=== PATIENT | male | born 2000 | race Caucasian/White ===

== ENCOUNTER 2022-10-18 15:33 | Inpatient (IN) | payer OTHER, SELFPAY ==
--- NOTE | ~2022-10-18 | XR_ITS ---
EXAMINATION: XR HAND, RIGHT CLINICAL INFORMATION: Right hand fracture COMPARISON: None available. TECHNIQUE: PA, lateral, and oblique views of the right hand. FINDINGS: The bones and soft tissues are normal. No fracture. Alignment is anatomic. Joint spaces are maintained. No erosions or soft tissue calcifications. XR/XR hand RT min 3V IMPRESSION: Normal right hand.
[2022-10-18 16:45] VITALS: BP 135/94; PULSE 93; TEMP 36.7; O2SAT 98
[2022-10-18] MEDS: hydrOXYzine HCL 25 MG TABLET PO (18:18)
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
--- NOTE | 2022-10-18 18:45 | PC.NURSE ---
Medication req done with RN at sending facility and MD. Unable to reach/identify pharmacy in [place]. MD placed current medications and scheduled labs.
[2022-10-18] MEDS: traZODone HCL 100 MG TABLET PO (20:27)
[2022-10-18] MEDS: Lithium Carbonate ER 450 MG TABLET.ER PO (20:27)
[2022-10-18] MEDS: risperiDONE 2 MG TABLET 4 MG PO (20:27)
[2022-10-18] MEDS: clonazePAM 0.5 MG TABLET PO (20:27)
[2022-10-18] MEDS: Nicotine Polacrilex 2 MG GUM 4 MG BUCCAL (20:31)
[2022-10-19] MEDS: clonazePAM 0.5 MG TABLET PO ×3 (00:08→18:23)
[2022-10-19] MEDS: hydrOXYzine HCL 25 MG TABLET PO ×4 (00:10→23:19)
[2022-10-19] MEDS: Benztropine Mesylate 1 MG TABLET PO ×2 (05:12→23:19)
[2022-10-19] MEDS: Nicotine Polacrilex 2 MG GUM 4 MG BUCCAL ×5 (05:12→20:19)
[2022-10-19] MEDS: Acetaminophen 325 MG TABLET 650 MG PO ×2 (05:12→15:06)
[2022-10-19 05:13] VITALS: BMI 26.6
[2022-10-19 08:00] VITALS: BP 139/86; PULSE 84; TEMP 36.6; O2SAT 98
[2022-10-19] MEDS: Lithium Carbonate ER 450 MG TABLET.ER PO ×2 (08:15→20:19)
[2022-10-19] MEDS: risperiDONE 2 MG TABLET PO (08:15)
[2022-10-19 09:27] LABS: Estimated Average Glucose 88 mg/dL; Hemoglobin A1c % 4.7 %
[2022-10-19 09:50] LABS: Lithium 0.47 mmol/L (0.60-1.20)
[2022-10-19 10:06] LABS: Alanine Aminotransferase 35 U/L (0-40); Albumin Level 4.9 g/dL (3.5-5.0); Alkaline Phosphatase 84 U/L (39-117); Anion Gap 11 (12-20); Aspartate Amino Transferase 19 U/L (5-37); Blood Urea Nitrogen 10 mg/dL (9-16); Calcium 10.4 mg/dL (8.4-10.2); Carbon Dioxide 30 mmol/L (22-29); Chloride 104 mmol/L (96-108); Cholesterol 124 mg/dL; Creatinine Clr Calc Pharmacy 108.1; Estimated Glomerular Filt Rate > 60; Glucose Fasting 113 mg/dL (60-99); HDL Cholesterol 47 mg/dL; LDL Cholesterol Calculated 57 mg/dl; Sodium 140 mmol/L (135-145); Total Protein 7.9 g/dL (6.5-8.0); Triglycerides 101 mg/dL
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
[2022-10-19 10:38] LABS: Folate 14.6 ng/mL (> or = 4.0); Free T4 (Free Thyroxine) 1.07 ng/dL (0.71-1.85); Vitamin B12 646 pg/mL (200-900)
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
[2022-10-19] MEDS: traZODone HCL 100 MG TABLET PO (20:18)
[2022-10-19] MEDS: risperiDONE 2 MG TABLET 4 MG PO (20:18)
[2022-10-19] MEDS: cloNIDine HCL 0.1 MG TABLET PO (20:18)
[2022-10-19 20:30] VITALS: BP 150/85; PULSE 96; RESP 16; O2SAT 97
[2022-10-19] MEDS: OLANZapine 5 MG TABLET PO (23:19)
[2022-10-20] MEDS: Acetaminophen 325 MG TABLET 650 MG PO (03:34)
[2022-10-20] MEDS: Nicotine Polacrilex 2 MG GUM 4 MG BUCCAL ×4 (03:34→17:33)
[2022-10-20] MEDS: OLANZapine 5 MG TABLET PO ×2 (03:53→11:56)
[2022-10-20 07:00] VITALS: BMI 25.6
[2022-10-20 07:43] VITALS: BP 150/80; PULSE 79; TEMP 36.7; O2SAT 98
[2022-10-20] MEDS: Lithium Carbonate ER 450 MG TABLET.ER PO (07:51)
[2022-10-20] MEDS: cloNIDine HCL 0.1 MG TABLET PO ×2 (07:51→22:30)
[2022-10-20] MEDS: risperiDONE 2 MG TABLET PO (07:51)
[2022-10-20] MEDS: Nicotine 21 MG PATCH.TD24 TRANSDERMA (07:52)
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
[2022-10-20] MEDS: hydrOXYzine HCL 25 MG TABLET PO (15:27)
[2022-10-20] MEDS: OLANZapine 10 MG TABLET PO (17:33)
[2022-10-20 20:10] VITALS: BP 148/72; PULSE 80; RESP 16; TEMP 36.9; O2SAT 98
[2022-10-20] MEDS: Lithium Carbonate 300 MG CAPSULE 600 MG PO (22:29)
[2022-10-20] MEDS: traZODone HCL 100 MG TABLET PO (22:29)
[2022-10-20] MEDS: risperiDONE 2 MG TABLET 4 MG PO (22:29)
[2022-10-20] MEDS: LORazepam 1 MG TABLET 2 MG PO (22:30)
[2022-10-21] MEDS: LORazepam 1 MG TABLET PO ×2 (02:04→13:21)
[2022-10-21] MEDS: Nicotine Polacrilex 2 MG GUM 4 MG BUCCAL ×5 (02:06→17:13)
[2022-10-21] MEDS: hydrOXYzine HCL 25 MG TABLET PO ×2 (04:31→14:17)
[2022-10-21] MEDS: OLANZapine 10 MG TABLET PO ×2 (04:31→17:15)
[2022-10-21 07:52] VITALS: BP 141/77; PULSE 88; TEMP 36.6; O2SAT 99
[2022-10-21] MEDS: Nicotine 21 MG PATCH.TD24 TRANSDERMA (08:02)
[2022-10-21] MEDS: Milk of Magnesia 30 ML ORAL.SUSP PO (08:03)
[2022-10-21] MEDS: Lithium Carbonate 300 MG CAPSULE PO (08:04)
[2022-10-21] MEDS: risperiDONE 2 MG TABLET PO (08:04)
[2022-10-21] MEDS: cloNIDine HCL 0.1 MG TABLET PO ×2 (08:05→20:42)
[2022-10-21] MEDS: Acetaminophen 325 MG TABLET 650 MG PO (14:17)
--- NOTE | 2022-10-21 16:22 | HO.PSYCHPN ---
Subjective Subjective Date of Service: 10/21/22 Reason For Visit: Psychosis Interim History: pleasant, cooperative. difficulty sleeping. agrees to increase trazodone to 150. per staff, anxious, pleasant. grandiose. poor sleep, up at 0200. singing and dancing yesterday. med-compliant. + grps. + ADLs. Mental Status Exam Mental Status Exam Narrative: Appearance: casually groomed, intense eye contact, in NAD behavior: cooperative Psychomotor: no over agitation or retardation noted Speech: clear, normal rate/rhythm, volume, spontaneous TP: linear in limited interaction TC: no delusions or paranoia expressed Mood: not assessed Affect: full range, flexible, normo-intense SI: none expressed HI: none expressed AVH: none expressed Insight/judgment: fair x 2. Memory/cog: alert, oriented x 4. Diagnostics Vital Signs (24Hr): Vital Signs - 24 hr 10/20/22 20:10 10/21/22 07:52 Temperature 98.4 F 97.9 F Pulse Rate 80 88 Respiratory Rate 16 Blood Pressure 148/72 H 141/77 H Pulse Oximetry 98 99 Oxygen Delivery Method Room Air Room Air BMI result Body Mass Index 25.6 Labs 10/19/22 08:37 Imaging Radiology Impressions: ITS Impressions Hand X-Ray 10/20/22 16:15 IMPRESSION: Normal right hand. Medications Medications Current Medications Acetaminophen (Acetaminophen 325 Mg Tablet) 650 mg PO Q6H PRN PRN Reason: Headache/Pain Mild Scale (1-3) Last Admin: 10/21/22 14:17 Dose: 650 mg Al Hydroxide/Mg Hydroxide (Magnesium Hydrox/Alum Hydrox 30 Ml Oral.Susp) 30 ml PO Q6H PRN PRN Reason: Heartburn/Nausea Benztropine Mesylate (Benztropine Mesylate 1 Mg Tablet) 1 mg PO TID PRN PRN Reason: Extrapyramidal Effects Last Admin: 10/19/22 23:19 Dose: 1 mg Clonidine HCl (Clonidine Hcl 0.1 Mg Tablet) 0.1 mg PO BID [facility]; Protocol Last Admin: 10/21/22 08:05 Dose: 0.1 mg Hydroxyzine HCl (Hydroxyzine Hcl 25 Mg Tablet) 25 mg PO Q6H PRN PRN Reason: Anxiety Last Admin: 10/21/22 14:17 Dose: 25 mg [place] Carbonate ([place] Carbonate 300 Mg Capsule) 300 mg PO DAILY [facility] Last Admin: 10/21/22 08:04 Dose: 300 mg [place] Carbonate ([place] Carbonate 300 Mg Capsule) 600 mg PO BEDTIME [facility] Last Admin: 10/20/22 22:29 Dose: 600 mg Lorazepam (Lorazepam 1 Mg Tablet) 2 mg PO BEDTIME [facility] Last Admin: 10/20/22 22:30 Dose: 2 mg Lorazepam (Lorazepam 1 Mg Tablet) 1 mg PO Q6H PRN PRN Reason: anxiety/agitation Last Admin: 10/21/22 13:21 Dose: 1 mg Magnesium Hydroxide (Milk Of Magnesia 30 Ml Oral.Susp) 30 ml PO DAILY PRN PRN Reason: Constipation Last Admin: 10/21/22 08:03 Dose: 30 ml Nicotine (Nicotine 21 Mg Patch.Td24) 21 mg TRANSDERMA DAILY [facility] Last Admin: 10/21/22 08:02 Dose: 21 mg Nicotine Polacrilex (Nicotine Polacrilex 2 Mg Gum) 4 mg BUCCAL Q2H PRN PRN Reason: Nicotine Cravings Last Admin: 10/21/22 14:19 Dose: 4 mg Olanzapine (Olanzapine 10 Mg Tablet) 10 mg PO Q4H PRN PRN Reason: Agitation Last Admin: 10/21/22 04:31 Dose: 10 mg Risperidone (Risperidone 2 Mg Tablet) 2 mg PO DAILY [facility] Last Admin: 10/21/22 08:04 Dose: 2 mg Risperidone (Risperidone 2 Mg Tablet) 4 mg PO BEDTIME [facility] Last Admin: 10/20/22 22:29 Dose: 4 mg Trazodone HCl (Trazodone Hcl 50 Mg Tablet) 150 mg PO BEDTIME MRX1 [facility] Allergies Allergies Allergy/AdvReac Type Severity Reaction Status Date / Time No Known Allergies Allergy Verified 10/18/22 16:32 Assessment & Plan Assessment & Plan (1) Schizoaffective disorder, bipolar type: Status: Acute Code(s): F25.0 - Schizoaffective disorder, bipolar type Plan Mr. Desouza is a 22 year-old male with hx of Bipolar versus schizoaffective disorder bipolar type (note severity of delusional and psychotic symptoms not exclusively present with mood component). Pt shows some insight into need for treatment. He currently denies hearing voices. He denies paranoid delusions, but does report paranoia towards previous hospital where he reports his brain was bleeding daily. We discussed risks, benefits and alternative treatment options. He agrees to continue risperidone and lithium. He reports using thorazine for agitation (secondary to psychosis/paranoia) and anxiety with good effect. He also presents with bilateral action tremor, which seems to be related to lithium. No cogwheel or EPS, less likely related to antipsychotic. Recommend to avoid dehydration, limit caffeinated beverages and also discuss adding clonidine or propanolol for tremor. PLAN 1. Admit to M3, CV, 15 minutes checks for safety. 2. Continue risperidone and lithium. Thorazine prn for agitation. 3. start clonidine 0.1mg po bID for tremor and anxiety. If ineffective can switch to propanolol 4. Obtain collateral information 5. Aftercare planning 10/20 continue current medications. d/c clonazepam per pt request and added ativan qhs for sleep. 10/21: increase trazodone to 150 mg QHS for sleep. otherwise continue current mgmt. resolving marco. Reason for continued inpatient stay Substantial Risk for: inability to function and rapid decompensation Time Spent With Patient Time: Total time managing care of this patient today __25__ minutes.
[2022-10-21 20:20] VITALS: BP 159/84; PULSE 95; RESP 18; TEMP 36.7; O2SAT 98
[2022-10-21] MEDS: LORazepam 1 MG TABLET 2 MG PO (20:41)
[2022-10-21] MEDS: traZODone HCL 50 MG TABLET 150 MG PO (20:41)
[2022-10-21] MEDS: risperiDONE 2 MG TABLET 4 MG PO (20:42)
[2022-10-21] MEDS: Lithium Carbonate 300 MG CAPSULE 600 MG PO (20:42)
[2022-10-22] MEDS: hydrOXYzine HCL 25 MG TABLET PO ×4 (00:03→23:18)
[2022-10-22] MEDS: traZODone HCL 50 MG TABLET 150 MG PO ×2 (00:03→20:39)
[2022-10-22] MEDS: OLANZapine 10 MG TABLET PO ×4 (04:08→23:18)
[2022-10-22] MEDS: Nicotine Polacrilex 2 MG GUM 4 MG BUCCAL ×4 (04:08→23:18)
[2022-10-22] MEDS: LORazepam 1 MG TABLET PO ×3 (04:08→17:13)
--- NOTE | 2022-10-22 05:34 | PC.NURSE ---
Sin is noted to be hyper-verbal but pleasant throughout the evening, A&O X's 3, with C/O anxiety 02/21 but denies all other psych symptoms. he requested his HS medications early then c/o insomnia and anxiety at 0003. he received second trazodone dose and atarax both with moderate effect. no behavioral concerns
[2022-10-22 06:00] VITALS: BP 136/82; PULSE 83; RESP 16; TEMP 36.6; O2SAT 98
[2022-10-22] MEDS: Acetaminophen 325 MG TABLET 650 MG PO ×2 (06:57→20:40)
[2022-10-22] MEDS: Nicotine 21 MG PATCH.TD24 TRANSDERMA (08:07)
[2022-10-22] MEDS: cloNIDine HCL 0.1 MG TABLET PO ×2 (08:08→20:40)
[2022-10-22] MEDS: risperiDONE 2 MG TABLET PO (08:08)
[2022-10-22] MEDS: Lithium Carbonate 300 MG CAPSULE PO (08:08)
[2022-10-22 08:46] LABS: Lithium 0.41 mmol/L (0.60-1.20)
--- NOTE | 2022-10-22 10:24 | HO.PSYCHPN ---
Subjective Subjective Date of Service: 10/22/22 Reason For Visit: Psychosis Subjective Notes: Conditional Voluntary Interim History: Pt appears less grandiose in that he reports ideas of going [place]. He reports tolerating the medication well. He reports he feels good. He denies SI/HI. He also denies VH/AH. No behavioral concerns. Pt slept 5 hrs. Review of Systems Review of Systems Pt reports pain on right hand fingers. No chest pain. No SOB. No loose stools or constipation. No abdominal pain No changes in vision Pt reports tremors bilat hands. Mental Status Exam Mental Status Exam Narrative: Appearance: casually groomed, intense eye contact, in NAD behavior: cooperative Psychomotor: no over agitation or retardation noted Speech: clear, normal rate/rhythm, volume, spontaneous TP: linear in limited interaction TC: no delusions or paranoia expressed Mood: not assessed Affect: full range, flexible, normo-intense SI: none expressed HI: none expressed AVH: none expressed Insight/judgment: fair x 2. Memory/cog: alert, oriented x 4. Diagnostics Vital Signs (24Hr): Vital Signs - 24 hr 10/21/22 20:20 10/22/22 06:00 Temperature 98.0 F 97.8 F Pulse Rate 95 83 Respiratory Rate 18 16 Blood Pressure 159/84 H 136/82 Pulse Oximetry 98 98 Oxygen Delivery Method Room Air Room Air BMI result Body Mass Index 25.6 Labs 10/19/22 08:37 Labs: Laboratory Results - last 48 hr 10/22/22 08:28 [place] 0.41 L Imaging Radiology Impressions: ITS Impressions Hand X-Ray 10/20/22 16:15 IMPRESSION: Normal right hand. Medications Medications Current Medications Acetaminophen (Acetaminophen 325 Mg Tablet) 650 mg PO Q6H PRN PRN Reason: Headache/Pain Mild Scale (1-3) Last Admin: 10/22/22 06:57 Dose: 650 mg Al Hydroxide/Mg Hydroxide (Magnesium Hydrox/Alum Hydrox 30 Ml Oral.Susp) 30 ml PO Q6H PRN PRN Reason: Heartburn/Nausea Benztropine Mesylate (Benztropine Mesylate 1 Mg Tablet) 1 mg PO TID PRN PRN Reason: Extrapyramidal Effects Last Admin: 10/19/22 23:19 Dose: 1 mg Clonidine HCl (Clonidine Hcl 0.1 Mg Tablet) 0.1 mg PO BID [facility]; Protocol Last Admin: 10/22/22 08:08 Dose: 0.1 mg Hydroxyzine HCl (Hydroxyzine Hcl 25 Mg Tablet) 25 mg PO Q6H PRN PRN Reason: Anxiety Last Admin: 10/22/22 06:58 Dose: 25 mg [place] Carbonate ([place] Carbonate 300 Mg Capsule) 300 mg PO DAILY [facility] Last Admin: 10/22/22 08:08 Dose: 300 mg [place] Carbonate ([place] Carbonate 300 Mg Capsule) 600 mg PO BID [facility] Lorazepam (Lorazepam 1 Mg Tablet) 2 mg PO BEDTIME [facility] Last Admin: 10/21/22 20:41 Dose: 2 mg Lorazepam (Lorazepam 1 Mg Tablet) 1 mg PO Q6H PRN PRN Reason: anxiety/agitation Last Admin: 10/22/22 10:08 Dose: 1 mg Magnesium Hydroxide (Milk Of Magnesia 30 Ml Oral.Susp) 30 ml PO DAILY PRN PRN Reason: Constipation Last Admin: 10/21/22 08:03 Dose: 30 ml Nicotine (Nicotine 21 Mg Patch.Td24) 21 mg TRANSDERMA DAILY [facility] Last Admin: 10/22/22 08:07 Dose: 21 mg Nicotine Polacrilex (Nicotine Polacrilex 2 Mg Gum) 4 mg BUCCAL Q2H PRN PRN Reason: Nicotine Cravings Last Admin: 10/22/22 04:08 Dose: 4 mg Olanzapine (Olanzapine 10 Mg Tablet) 10 mg PO Q4H PRN PRN Reason: Agitation Last Admin: 10/22/22 04:08 Dose: 10 mg Risperidone (Risperidone 2 Mg Tablet) 2 mg PO DAILY [facility] Last Admin: 10/22/22 08:08 Dose: 2 mg Risperidone (Risperidone 2 Mg Tablet) 4 mg PO BEDTIME [facility] Last Admin: 10/21/22 20:42 Dose: 4 mg Trazodone HCl (Trazodone Hcl 50 Mg Tablet) 150 mg PO BEDTIME [facility] Allergies Allergies Allergy/AdvReac Type Severity Reaction Status Date / Time No Known Allergies Allergy Verified 10/18/22 16:32 Assessment & Plan Assessment & Plan (1) Schizoaffective disorder, bipolar type: Status: Acute Code(s): F25.0 - Schizoaffective disorder, bipolar type Plan Mr. Desouza is a 22 year-old male with hx of Bipolar versus schizoaffective disorder bipolar type (note severity of delusional and psychotic symptoms not exclusively present with mood component). Pt shows some insight into need for treatment. He currently denies hearing voices. He denies paranoid delusions, but does report paranoia towards previous hospital where he reports his brain was bleeding daily. We discussed risks, benefits and alternative treatment options. He agrees to continue risperidone and lithium. He reports using thorazine for agitation (secondary to psychosis/paranoia) and anxiety with good effect. He also presents with bilateral action tremor, which seems to be related to lithium. No cogwheel or EPS, less likely related to antipsychotic. Recommend to avoid dehydration, limit caffeinated beverages and also discuss adding clonidine or propanolol for tremor. PLAN 1. Admit to M3, CV, 15 minutes checks for safety. 2. Continue risperidone and lithium. Thorazine prn for agitation. 3. start clonidine 0.1mg po bID for tremor and anxiety. If ineffective can switch to propanolol 4. Obtain collateral information 5. Aftercare planning 10/20 continue current medications. d/c clonazepam per pt request and added ativan qhs for sleep. 10/21: increase trazodone to 150 mg QHS for sleep. otherwise continue current mgmt. resolving marco. 10/22 lithium level low, lithium dose increase to 600mg po BID. Reason for continued inpatient stay Substantial Risk for: inability to function Time Spent With Patient Time: Total time managing care of this patient today ____ minutes.
[2022-10-22] MEDS: Lithium Carbonate 300 MG TABLET PO (11:13)
[2022-10-22] MEDS: Milk of Magnesia 30 ML ORAL.SUSP PO (14:55)
[2022-10-22 20:35] VITALS: BP 131/78; PULSE 96; RESP 18; TEMP 36.4; O2SAT 96
[2022-10-22] MEDS: Lithium Carbonate 300 MG CAPSULE 600 MG PO (20:40)
[2022-10-22] MEDS: LORazepam 1 MG TABLET 2 MG PO (20:40)
[2022-10-22] MEDS: risperiDONE 2 MG TABLET 4 MG PO (20:40)
[2022-10-23] MEDS: OLANZapine 10 MG TABLET PO ×3 (03:20→14:57)
[2022-10-23] MEDS: Nicotine Polacrilex 2 MG GUM 4 MG BUCCAL ×5 (03:20→19:25)
[2022-10-23 06:00] VITALS: BP 140/84; PULSE 99; RESP 16; TEMP 36.8; O2SAT 98
[2022-10-23] MEDS: Nicotine 21 MG PATCH.TD24 TRANSDERMA (08:02)
[2022-10-23] MEDS: Lithium Carbonate 300 MG CAPSULE PO (08:02)
[2022-10-23] MEDS: cloNIDine HCL 0.1 MG TABLET PO ×2 (08:03→20:16)
[2022-10-23] MEDS: Lithium Carbonate 300 MG CAPSULE 600 MG PO ×2 (08:03→20:16)
[2022-10-23] MEDS: risperiDONE 2 MG TABLET PO (08:03)
[2022-10-23] MEDS: Acetaminophen 325 MG TABLET 650 MG PO ×2 (09:41→16:01)
[2022-10-23] MEDS: LORazepam 1 MG TABLET PO ×2 (10:30→16:02)
[2022-10-23] MEDS: hydrOXYzine HCL 25 MG TABLET PO ×2 (11:43→19:24)
[2022-10-23] MEDS: Milk of Magnesia 30 ML ORAL.SUSP PO (14:07)
[2022-10-23] MEDS: Benztropine Mesylate 1 MG TABLET PO (17:36)
--- NOTE | 2022-10-23 18:27 | P.PNPSI_ITS ---
Subjective Subjective Date of Service: 10/23/22 Reason For Visit: Psychosis Subjective Notes: Conditional Voluntary Interim History: Pt reports medications are helping a lot. He reports feeling calmer. He did ask for prn olanzapine yesterday mroe than usual. He reports he feels good. Less grandiose delusions. He denies SI/HI. He also denies VH/AH. No behavioral concerns. Pt slept 5 hrs. Review of Systems Review of Systems Pt reports pain on right hand fingers. No chest pain. No SOB. No loose stools or constipation. No abdominal pain No changes in vision Pt reports tremors bilat hands. Mental Status Exam Mental Status Exam Narrative: Appearance: casually groomed, intense eye contact, in NAD behavior: cooperative Psychomotor: no over agitation or retardation noted Speech: clear, normal rate/rhythm, volume, spontaneous TP: linear in limited interaction TC: no delusions or paranoia expressed Mood: not assessed Affect: full range, flexible, normo-intense SI: none expressed HI: none expressed AVH: none expressed Insight/judgment: fair x 2. Memory/cog: alert, oriented x 4. Diagnostics Vital Signs (24Hr): Vital Signs - 24 hr 10/22/22 20:35 10/23/22 06:00 Temperature 97.6 F 98.2 F Pulse Rate 96 99 Respiratory Rate 18 16 Blood Pressure 131/78 140/84 H Pulse Oximetry 96 98 Oxygen Delivery Method Room Air Room Air BMI result Body Mass Index 25.6 Labs 10/19/22 08:37 Labs: Laboratory Results - last 48 hr 10/22/22 08:28 [place] 0.41 L Imaging Radiology Impressions: ITS Impressions Hand X-Ray 10/20/22 16:15 IMPRESSION: Normal right hand. Medications Medications Current Medications Acetaminophen (Acetaminophen 325 Mg Tablet) 650 mg PO Q6H PRN PRN Reason: Headache/Pain Mild Scale (1-3) Last Admin: 10/23/22 16:01 Dose: 650 mg Al Hydroxide/Mg Hydroxide (Magnesium Hydrox/Alum Hydrox 30 Ml Oral.Susp) 30 ml PO Q6H PRN PRN Reason: Heartburn/Nausea Benztropine Mesylate (Benztropine Mesylate 1 Mg Tablet) 1 mg PO TID PRN PRN Reason: Extrapyramidal Effects Last Admin: 10/23/22 17:36 Dose: 1 mg Clonidine HCl (Clonidine Hcl 0.1 Mg Tablet) 0.1 mg PO BID [facility]; Protocol Last Admin: 10/23/22 08:03 Dose: 0.1 mg Hydroxyzine HCl (Hydroxyzine Hcl 25 Mg Tablet) 25 mg PO Q6H PRN PRN Reason: Anxiety Last Admin: 10/23/22 11:43 Dose: 25 mg [place] Carbonate ([place] Carbonate 300 Mg Capsule) 300 mg PO DAILY [facility] Last Admin: 10/23/22 08:02 Dose: 300 mg [place] Carbonate ([place] Carbonate 300 Mg Capsule) 600 mg PO BID [facility] Last Admin: 10/23/22 08:03 Dose: 600 mg Lorazepam (Lorazepam 1 Mg Tablet) 2 mg PO BEDTIME [facility] Last Admin: 10/22/22 20:40 Dose: 2 mg Lorazepam (Lorazepam 1 Mg Tablet) 1 mg PO Q6H PRN PRN Reason: anxiety/agitation Last Admin: 10/23/22 16:02 Dose: 1 mg Magnesium Hydroxide (Milk Of Magnesia 30 Ml Oral.Susp) 30 ml PO DAILY PRN PRN Reason: Constipation Last Admin: 10/23/22 14:07 Dose: 30 ml Nicotine (Nicotine 21 Mg Patch.Td24) 21 mg TRANSDERMA DAILY [facility] Last Admin: 10/23/22 08:02 Dose: 21 mg Nicotine Polacrilex (Nicotine Polacrilex 2 Mg Gum) 4 mg BUCCAL Q2H PRN PRN Reason: Nicotine Cravings Last Admin: 10/23/22 16:04 Dose: 4 mg Olanzapine (Olanzapine 10 Mg Tablet) 10 mg PO Q4H PRN PRN Reason: Agitation Last Admin: 10/23/22 14:57 Dose: 10 mg Risperidone (Risperidone 2 Mg Tablet) 2 mg PO DAILY [facility] Last Admin: 10/23/22 08:03 Dose: 2 mg Risperidone (Risperidone 2 Mg Tablet) 4 mg PO BEDTIME [facility] Last Admin: 10/22/22 20:40 Dose: 4 mg Trazodone HCl (Trazodone Hcl 50 Mg Tablet) 150 mg PO BEDTIME [facility] Last Admin: 10/22/22 20:39 Dose: 150 mg Allergies Allergies Allergy/AdvReac Type Severity Reaction Status Date / Time No Known Allergies Allergy Verified 10/18/22 16:32 Assessment & Plan Assessment & Plan (1) Schizoaffective disorder, bipolar type: Status: Acute Code(s): F25.0 - Schizoaffective disorder, bipolar type Plan Mr. Desouza is a 22 year-old male with hx of Bipolar versus schizoaffective disorder bipolar type (note severity of delusional and psychotic symptoms not exclusively present with mood component). Pt shows some insight into need for treatment. He currently denies hearing voices. He denies paranoid delusions, but does report paranoia towards previous hospital where he reports his brain was bleeding daily. We discussed risks, benefits and alternative treatment options. He agrees to continue risperidone and lithium. He reports using thorazine for agitation (secondary to psychosis/paranoia) and anxiety with good effect. He also presents with bilateral action tremor, which seems to be related to lithium. No cogwheel or EPS, less likely related to antipsychotic. Recommend to avoid dehydration, limit caffeinated beverages and also discuss adding clonidine or propanolol for tremor. PLAN 1. Admit to M3, CV, 15 minutes checks for safety. 2. Continue risperidone and lithium. Thorazine prn for agitation. 3. start clonidine 0.1mg po bID for tremor and anxiety. If ineffective can switch to propanolol 4. Obtain collateral information 5. Aftercare planning 10/20 continue current medications. d/c clonazepam per pt request and added ativan qhs for sleep. 10/21: increase trazodone to 150 mg QHS for sleep. otherwise continue current mgmt. resolving marco. 10/22 lithium increase to 600mg po BID 10/23 continue tx. Reason for continued inpatient stay Substantial Risk for: inability to function Time Spent With Patient Time: Total time managing care of this patient today ____ minutes.
[2022-10-23 20:00] VITALS: BP 125/71; PULSE 101; RESP 20; TEMP 36.3; O2SAT 98
[2022-10-23] MEDS: risperiDONE 2 MG TABLET 4 MG PO (20:14)
[2022-10-23] MEDS: traZODone HCL 50 MG TABLET 150 MG PO (20:15)
[2022-10-23] MEDS: LORazepam 1 MG TABLET 2 MG PO (20:15)
[2022-10-24] MEDS: LORazepam 1 MG TABLET PO ×3 (01:55→23:14)
[2022-10-24] MEDS: hydrOXYzine HCL 25 MG TABLET PO ×2 (03:53→16:12)
[2022-10-24] MEDS: Acetaminophen 325 MG TABLET 650 MG PO ×2 (03:53→14:32)
[2022-10-24] MEDS: OLANZapine 10 MG TABLET PO ×3 (04:50→23:14)
[2022-10-24] MEDS: Nicotine Polacrilex 2 MG GUM 4 MG BUCCAL ×5 (04:50→20:13)
[2022-10-24 07:59] VITALS: BP 145/76; PULSE 99; TEMP 36.7; O2SAT 97
[2022-10-24] MEDS: Lithium Carbonate 300 MG CAPSULE 600 MG PO ×2 (08:15→20:13)
[2022-10-24] MEDS: Nicotine 21 MG PATCH.TD24 TRANSDERMA (08:15)
[2022-10-24] MEDS: cloNIDine HCL 0.1 MG TABLET PO ×2 (08:16→20:11)
[2022-10-24] MEDS: Lithium Carbonate 300 MG CAPSULE PO (08:16)
[2022-10-24] MEDS: risperiDONE 2 MG TABLET PO (08:16)
[2022-10-24] MEDS: Milk of Magnesia 30 ML ORAL.SUSP PO (11:27)
--- NOTE | 2022-10-24 13:40 | P.PNPSI_ITS ---
Subjective Subjective Date of Service: 10/24/22 Reason For Visit: Psychosis Subjective Notes: Conditional Voluntary Interim History: Pt continues to report medications are helping a lot. He reports feeling calmer. When asked about ideas of God wanting him to save the world and fight the devil, he states no, I don't have those thoughts anymore. He reports he wants to make sure lithium is at right dose and level. He reports sleeping and eating well. No aggression towards self or others. Review of Systems Review of Systems Pt reports pain on right hand fingers. No chest pain. No SOB. No loose stools or constipation. No abdominal pain No changes in vision Pt reports tremors bilat hands. Mental Status Exam Mental Status Exam Narrative: Appearance: casually groomed, intense eye contact, in NAD behavior: cooperative Psychomotor: no over agitation or retardation noted Speech: clear, normal rate/rhythm, volume, spontaneous TP: linear in limited interaction TC: no delusions or paranoia expressed Mood: not assessed Affect: full range, flexible, normo-intense SI: none expressed HI: none expressed AVH: none expressed Insight/judgment: fair x 2. Memory/cog: alert, oriented x 4. Diagnostics Vital Signs (24Hr): Vital Signs - 24 hr 10/23/22 20:00 10/24/22 07:59 Temperature 97.4 F 98.1 F Pulse Rate 101 H 99 Respiratory Rate 20 Blood Pressure 125/71 145/76 H Pulse Oximetry 98 97 Oxygen Delivery Method Room Air Room Air BMI result Body Mass Index 25.6 Labs 10/19/22 08:37 Imaging Radiology Impressions: ITS Impressions Hand X-Ray 10/20/22 16:15 IMPRESSION: Normal right hand. Medications Medications Current Medications Acetaminophen (Acetaminophen 325 Mg Tablet) 650 mg PO Q6H PRN PRN Reason: Headache/Pain Mild Scale (1-3) Last Admin: 10/24/22 03:53 Dose: 650 mg Al Hydroxide/Mg Hydroxide (Magnesium Hydrox/Alum Hydrox 30 Ml Oral.Susp) 30 ml PO Q6H PRN PRN Reason: Heartburn/Nausea Benztropine Mesylate (Benztropine Mesylate 1 Mg Tablet) 1 mg PO TID PRN PRN Reason: Extrapyramidal Effects Last Admin: 10/23/22 17:36 Dose: 1 mg Clonidine HCl (Clonidine Hcl 0.1 Mg Tablet) 0.1 mg PO BID [facility]; Protocol Last Admin: 10/24/22 08:16 Dose: 0.1 mg Hydroxyzine HCl (Hydroxyzine Hcl 25 Mg Tablet) 25 mg PO Q6H PRN PRN Reason: Anxiety Last Admin: 10/24/22 03:53 Dose: 25 mg [place] Carbonate ([place] Carbonate 300 Mg Capsule) 300 mg PO DAILY [facility] Last Admin: 10/24/22 08:16 Dose: 300 mg [place] Carbonate ([place] Carbonate 300 Mg Capsule) 600 mg PO BID [facility] Last Admin: 10/24/22 08:15 Dose: 600 mg Lorazepam (Lorazepam 1 Mg Tablet) 2 mg PO BEDTIME [facility] Last Admin: 10/23/22 20:15 Dose: 2 mg Lorazepam (Lorazepam 1 Mg Tablet) 1 mg PO Q6H PRN PRN Reason: anxiety/agitation Last Admin: 10/24/22 11:27 Dose: 1 mg Magnesium Hydroxide (Milk Of Magnesia 30 Ml Oral.Susp) 30 ml PO DAILY PRN PRN Reason: Constipation Last Admin: 10/24/22 11:27 Dose: 30 ml Nicotine (Nicotine 21 Mg Patch.Td24) 21 mg TRANSDERMA DAILY [facility] Last Admin: 10/24/22 08:15 Dose: 21 mg Nicotine Polacrilex (Nicotine Polacrilex 2 Mg Gum) 4 mg BUCCAL Q2H PRN PRN Reason: Nicotine Cravings Last Admin: 10/24/22 08:22 Dose: 4 mg Olanzapine (Olanzapine 10 Mg Tablet) 10 mg PO Q4H PRN PRN Reason: Agitation Last Admin: 10/24/22 04:50 Dose: 10 mg Risperidone (Risperidone 2 Mg Tablet) 2 mg PO DAILY [facility] Last Admin: 10/24/22 08:16 Dose: 2 mg Risperidone (Risperidone 2 Mg Tablet) 4 mg PO BEDTIME [facility] Last Admin: 10/23/22 20:14 Dose: 4 mg Trazodone HCl (Trazodone Hcl 50 Mg Tablet) 150 mg PO BEDTIME [facility] Last Admin: 10/23/22 20:15 Dose: 150 mg Allergies Allergies Allergy/AdvReac Type Severity Reaction Status Date / Time No Known Allergies Allergy Verified 10/18/22 16:32 Assessment & Plan Assessment & Plan (1) Schizoaffective disorder, bipolar type: Status: Acute Code(s): F25.0 - Schizoaffective disorder, bipolar type Plan Mr. Desouza is a 22 year-old male with hx of Bipolar versus schizoaffective disorder bipolar type (note severity of delusional and psychotic symptoms not exclusively present with mood component). Pt shows some insight into need for treatment. He currently denies hearing voices. He denies paranoid delusions, but does report paranoia towards previous hospital where he reports his brain was bleeding daily. We discussed risks, benefits and alternative treatment options. He agrees to continue risperidone and lithium. He reports using thorazine for agitation (secondary to psychosis/paranoia) and anxiety with good effect. He also presents with bilateral action tremor, which seems to be related to lithium. No cogwheel or EPS, less likely related to antipsychotic. Recommend to avoid dehydration, limit caffeinated beverages and also discuss adding clonidine or propanolol for tremor. PLAN 1. Admit to M3, CV, 15 minutes checks for safety. 2. Continue risperidone and lithium. Thorazine prn for agitation. 3. start clonidine 0.1mg po bID for tremor and anxiety. If ineffective can switch to propanolol 4. Obtain collateral information 5. Aftercare planning 10/20 continue current medications. d/c clonazepam per pt request and added ativan qhs for sleep. 10/21: increase trazodone to 150 mg QHS for sleep. otherwise continue current mgmt. resolving marco. 10/22 lithium increase to 600mg po BID 10/23 continue tx. 10/24 continue tx. Reason for continued inpatient stay Substantial Risk for: inability to function Time Spent With Patient Time: Total time managing care of this patient today ____ minutes.
[2022-10-24 20:00] VITALS: BP 138/81; PULSE 100; RESP 16; TEMP 36.7; O2SAT 97
[2022-10-24] MEDS: risperiDONE 2 MG TABLET 4 MG PO (20:10)
[2022-10-24] MEDS: traZODone HCL 50 MG TABLET 150 MG PO (20:11)
[2022-10-24] MEDS: LORazepam 1 MG TABLET 2 MG PO (20:12)
[2022-10-25] MEDS: hydrOXYzine HCL 25 MG TABLET PO ×2 (01:44→14:43)
[2022-10-25] MEDS: Acetaminophen 325 MG TABLET 650 MG PO ×2 (01:44→11:58)
[2022-10-25] MEDS: OLANZapine 10 MG TABLET PO ×2 (05:16→11:58)
[2022-10-25] MEDS: LORazepam 1 MG TABLET PO (05:16)
[2022-10-25] MEDS: Nicotine Polacrilex 2 MG GUM 4 MG BUCCAL ×2 (05:16→13:40)
[2022-10-25 07:56] VITALS: BP 145/86; PULSE 100; TEMP 36.7; O2SAT 98
[2022-10-25] MEDS: Nicotine 21 MG PATCH.TD24 TRANSDERMA (08:00)
[2022-10-25] MEDS: risperiDONE 2 MG TABLET PO (08:01)
[2022-10-25] MEDS: Lithium Carbonate 300 MG CAPSULE 600 MG PO ×2 (08:01→20:40)
[2022-10-25] MEDS: cloNIDine HCL 0.1 MG TABLET PO ×2 (08:02→20:40)
[2022-10-25] MEDS: Lithium Carbonate 300 MG CAPSULE PO (08:02)
--- NOTE | 2022-10-25 14:27 | P.PNPSI_ITS ---
Subjective Subjective Date of Service: 10/25/22 Reason For Visit: Psychosis Subjective Notes: Conditional Voluntary Interim History: Pt continues to report that he is feeling better. He shows increase insight into some of grandiose and buddhism delusions stating I don't think that's true any more. He denies SI/HI. No overt delusional or psychosis. He reports sleeping and eating well. He has been visible on the unit and attends assigned groups. Medication Compliance: Yes Side effects from medications: No Review of Systems Review of Systems Pt reports pain on right hand fingers. No chest pain. No SOB. No loose stools or constipation. No abdominal pain No changes in vision Pt reports tremors bilat hands. Mental Status Exam Mental Status Exam Narrative: Appearance: casually groomed, intense eye contact, in NAD behavior: cooperative Psychomotor: no over agitation or retardation noted Speech: clear, normal rate/rhythm, volume, spontaneous TP: linear in limited interaction TC: no delusions or paranoia expressed Mood: not assessed Affect: full range, flexible, normo-intense SI: none expressed HI: none expressed AVH: none expressed Insight/judgment: fair x 2. Memory/cog: alert, oriented x 4. Diagnostics Vital Signs (24Hr): Vital Signs - 24 hr 10/24/22 20:00 10/25/22 07:56 Temperature 98.1 F 98.1 F Pulse Rate 100 100 Respiratory Rate 16 Blood Pressure 138/81 145/86 H Pulse Oximetry 97 98 Oxygen Delivery Method Room Air Room Air BMI result Body Mass Index 25.6 Labs 10/19/22 08:37 Imaging Radiology Impressions: ITS Impressions Hand X-Ray 10/20/22 16:15 IMPRESSION: Normal right hand. Medications Medications Current Medications Acetaminophen (Acetaminophen 325 Mg Tablet) 650 mg PO Q6H PRN PRN Reason: Headache/Pain Mild Scale (1-3) Last Admin: 10/25/22 11:58 Dose: 650 mg Al Hydroxide/Mg Hydroxide (Magnesium Hydrox/Alum Hydrox 30 Ml Oral.Susp) 30 ml PO Q6H PRN PRN Reason: Heartburn/Nausea Benztropine Mesylate (Benztropine Mesylate 1 Mg Tablet) 1 mg PO TID PRN PRN Reason: Extrapyramidal Effects Last Admin: 10/23/22 17:36 Dose: 1 mg Clonidine HCl (Clonidine Hcl 0.1 Mg Tablet) 0.1 mg PO BID [facility]; Protocol Last Admin: 10/25/22 08:02 Dose: 0.1 mg Hydroxyzine HCl (Hydroxyzine Hcl 25 Mg Tablet) 25 mg PO Q6H PRN PRN Reason: Anxiety Last Admin: 10/25/22 01:44 Dose: 25 mg [place] Carbonate ([place] Carbonate 300 Mg Capsule) 300 mg PO DAILY [facility] Last Admin: 10/25/22 08:02 Dose: 300 mg [place] Carbonate ([place] Carbonate 300 Mg Capsule) 600 mg PO BID [facility] Last Admin: 10/25/22 08:01 Dose: 600 mg Lorazepam (Lorazepam 1 Mg Tablet) 2 mg PO BEDTIME [facility] Last Admin: 10/24/22 20:12 Dose: 2 mg Lorazepam (Lorazepam 1 Mg Tablet) 1 mg PO Q12H PRN PRN Reason: anxiety/agitation Magnesium Hydroxide (Milk Of Magnesia 30 Ml Oral.Susp) 30 ml PO DAILY PRN PRN Reason: Constipation Last Admin: 10/24/22 11:27 Dose: 30 ml Nicotine (Nicotine 21 Mg Patch.Td24) 21 mg TRANSDERMA DAILY [facility] Last Admin: 10/25/22 08:00 Dose: 21 mg Nicotine Polacrilex (Nicotine Polacrilex 2 Mg Gum) 4 mg BUCCAL Q2H PRN PRN Reason: Nicotine Cravings Last Admin: 10/25/22 13:40 Dose: 4 mg Olanzapine (Olanzapine 10 Mg Tablet) 10 mg PO Q4H PRN PRN Reason: Agitation Last Admin: 10/25/22 11:58 Dose: 10 mg Risperidone (Risperidone 2 Mg Tablet) 2 mg PO DAILY [facility] Last Admin: 10/25/22 08:01 Dose: 2 mg Risperidone (Risperidone 2 Mg Tablet) 4 mg PO BEDTIME [facility] Last Admin: 10/24/22 20:10 Dose: 4 mg Trazodone HCl (Trazodone Hcl 50 Mg Tablet) 150 mg PO BEDTIME [facility] Last Admin: 10/24/22 20:11 Dose: 150 mg Allergies Allergies Allergy/AdvReac Type Severity Reaction Status Date / Time No Known Allergies Allergy Verified 10/18/22 16:32 Assessment & Plan Assessment & Plan (1) Schizoaffective disorder, bipolar type: Status: Acute Code(s): F25.0 - Schizoaffective disorder, bipolar type Plan Mr. Desouza is a 22 year-old male with hx of Bipolar versus schizoaffective disorder bipolar type (note severity of delusional and psychotic symptoms not exclusively present with mood component). Pt shows some insight into need for treatment. He currently denies hearing voices. He denies paranoid delusions, but does report paranoia towards previous hospital where he reports his brain was bleeding daily. We discussed risks, benefits and alternative treatment options. He agrees to continue risperidone and lithium. He reports using thorazine for agitation (secondary to psychosis/paranoia) and anxiety with good effect. He also presents with bilateral action tremor, which seems to be related to lithium. No cogwheel or EPS, less likely related to antipsychotic. Recommend to avoid dehydration, limit caffeinated beverages and also discuss adding clonidine or propanolol for tremor. PLAN 1. Admit to M3, CV, 15 minutes checks for safety. 2. Continue risperidone and lithium. Thorazine prn for agitation. 3. start clonidine 0.1mg po bID for tremor and anxiety. If ineffective can switch to propanolol 4. Obtain collateral information 5. Aftercare planning 10/20 continue current medications. d/c clonazepam per pt request and added ativan qhs for sleep. 10/21: increase trazodone to 150 mg QHS for sleep. otherwise continue current mgmt. resolving marco. 10/22 lithium increase to 600mg po BID 10/23 continue tx. 10/24 continue tx. 10/25 continue tx. Reason for continued inpatient stay Substantial Risk for: inability to function Time Spent With Patient Time: Total time managing care of this patient today ____ minutes.
[2022-10-25] MEDS: Ibuprofen 800 MG TABLET PO (14:43)
[2022-10-25] MEDS: Milk of Magnesia 30 ML ORAL.SUSP PO (16:21)
[2022-10-25 19:50] VITALS: BP 130/83; PULSE 101; RESP 18; TEMP 36.4; O2SAT 97
[2022-10-25] MEDS: risperiDONE 2 MG TABLET 4 MG PO (20:40)
[2022-10-25] MEDS: LORazepam 1 MG TABLET 2 MG PO (20:41)
[2022-10-25] MEDS: traZODone HCL 50 MG TABLET 150 MG PO (20:41)
[2022-10-26] MEDS: traZODone HCL 50 MG TABLET 150 MG PO ×3 (01:15→21:27)
[2022-10-26] MEDS: hydrOXYzine HCL 25 MG TABLET PO ×2 (01:16→10:24)
[2022-10-26] MEDS: Nicotine Polacrilex 2 MG GUM 4 MG BUCCAL ×3 (03:15→17:23)
[2022-10-26] MEDS: OLANZapine 10 MG TABLET PO (03:15)
--- NOTE | 2022-10-26 05:35 | PC.NURSE ---
Sin was noted to be very restless throughout the night. he received a repeat dose of trazodone along with ataras at [id number], after which he slept for approximately 2 hours he then received zyprexa and again rested for approximately 2 hours he is pleasant and cooperative with questions he denies mary psych symptoms but appears to hypo-manic with flight of ideas
[2022-10-26 06:00] VITALS: BP 144/87; PULSE 110; RESP 18; O2SAT 98
[2022-10-26] MEDS: Nicotine 21 MG PATCH.TD24 TRANSDERMA (08:27)
[2022-10-26] MEDS: risperiDONE 2 MG TABLET PO (08:27)
[2022-10-26] MEDS: cloNIDine HCL 0.1 MG TABLET PO ×2 (08:27→20:39)
[2022-10-26] MEDS: Lithium Carbonate 300 MG CAPSULE 600 MG PO ×2 (08:27→20:37)
[2022-10-26] MEDS: Acetaminophen 325 MG TABLET 650 MG PO (10:24)
[2022-10-26] MEDS: LORazepam 1 MG TABLET PO ×2 (14:14→20:40)
[2022-10-26] MEDS: Ibuprofen 800 MG TABLET PO (17:22)
--- NOTE | 2022-10-26 18:32 | HO.PSYCHPN ---
Subjective Subjective Date of Service: 10/26/22 Reason For Visit: Psychosis Subjective Notes: Conditional Voluntary Interim History: Pt continues to report that he is feeling better, stating better than yesterday . He shows increase insight into some of grandiose and mosque delusions stating I don't think that's true any more. He denies SI/HI. No overt delusional or psychosis. He reports sleeping and eating well. He has been visible on the unit and attends assigned groups. Review of Systems Review of Systems Pt reports pain on right hand fingers. No chest pain. No SOB. No loose stools or constipation. No abdominal pain No changes in vision Pt reports tremors bilat hands. Mental Status Exam Mental Status Exam Narrative: Appearance: casually groomed, intense eye contact, in NAD behavior: cooperative Psychomotor: no over agitation or retardation noted Speech: clear, normal rate/rhythm, volume, spontaneous TP: linear in limited interaction TC: no delusions or paranoia expressed Mood: not assessed Affect: full range, flexible, normo-intense SI: none expressed HI: none expressed AVH: none expressed Insight/judgment: fair x 2. Memory/cog: alert, oriented x 4. Diagnostics Vital Signs (24Hr): Vital Signs - 24 hr 10/25/22 19:50 10/26/22 06:00 Temperature 97.6 F Pulse Rate 101 H 110 H Respiratory Rate 18 18 Blood Pressure 130/83 144/87 H Pulse Oximetry 97 98 Oxygen Delivery Method Room Air Room Air BMI result Body Mass Index 25.6 Labs 10/19/22 08:37 Imaging Radiology Impressions: ITS Impressions Hand X-Ray 10/20/22 16:15 IMPRESSION: Normal right hand. Medications Medications Current Medications Acetaminophen (Acetaminophen 325 Mg Tablet) 650 mg PO Q6H PRN PRN Reason: Headache/Pain Mild Scale (1-3) Last Admin: 10/26/22 10:24 Dose: 650 mg Al Hydroxide/Mg Hydroxide (Magnesium Hydrox/Alum Hydrox 30 Ml Oral.Susp) 30 ml PO Q6H PRN PRN Reason: Heartburn/Nausea Benztropine Mesylate (Benztropine Mesylate 1 Mg Tablet) 1 mg PO TID PRN PRN Reason: Extrapyramidal Effects Last Admin: 10/23/22 17:36 Dose: 1 mg Clonidine HCl (Clonidine Hcl 0.1 Mg Tablet) 0.1 mg PO BID [facility]; Protocol Last Admin: 10/26/22 08:27 Dose: 0.1 mg Hydroxyzine HCl (Hydroxyzine Hcl 25 Mg Tablet) 25 mg PO Q6H PRN PRN Reason: Anxiety Last Admin: 10/26/22 10:24 Dose: 25 mg Ibuprofen (Ibuprofen 800 Mg Tablet) 800 mg PO Q8H PRN PRN Reason: Pain, Moderate(Pain Scale 4-6) Last Admin: 10/26/22 17:22 Dose: 800 mg [place] Carbonate ([place] Carbonate 300 Mg Capsule) 600 mg PO BID [facility] Last Admin: 10/26/22 08:27 Dose: 600 mg Lorazepam (Lorazepam 1 Mg Tablet) 1 mg PO Q12H PRN PRN Reason: anxiety/agitation Last Admin: 10/26/22 14:14 Dose: 1 mg Lorazepam (Lorazepam 1 Mg Tablet) 1 mg PO BEDTIME [facility] Magnesium Hydroxide (Milk Of Magnesia 30 Ml Oral.Susp) 30 ml PO DAILY PRN PRN Reason: Constipation Last Admin: 10/25/22 16:21 Dose: 30 ml Nicotine (Nicotine 21 Mg Patch.Td24) 21 mg TRANSDERMA DAILY [facility] Last Admin: 10/26/22 08:27 Dose: 21 mg Nicotine Polacrilex (Nicotine Polacrilex 2 Mg Gum) 4 mg BUCCAL Q2H PRN PRN Reason: Nicotine Cravings Last Admin: 10/26/22 17:23 Dose: 4 mg Olanzapine (Olanzapine 10 Mg Tablet) 10 mg PO Q6H PRN PRN Reason: Agitation Last Admin: 10/26/22 03:15 Dose: 10 mg Risperidone (Risperidone 2 Mg Tablet) 2 mg PO DAILY [facility] Last Admin: 10/26/22 08:27 Dose: 2 mg Risperidone (Risperidone 2 Mg Tablet) 4 mg PO BEDTIME [facility] Last Admin: 10/25/22 20:40 Dose: 4 mg Trazodone HCl (Trazodone Hcl 50 Mg Tablet) 150 mg PO BEDTIME [facility] Last Admin: 10/26/22 01:15 Dose: 150 mg Allergies Allergies Allergy/AdvReac Type Severity Reaction Status Date / Time No Known Allergies Allergy Verified 10/18/22 16:32 Assessment & Plan Assessment & Plan (1) Schizoaffective disorder, bipolar type: Status: Acute Code(s): F25.0 - Schizoaffective disorder, bipolar type Plan Mr. Desouza is a 22 year-old male with hx of Bipolar versus schizoaffective disorder bipolar type (note severity of delusional and psychotic symptoms not exclusively present with mood component). Pt shows some insight into need for treatment. He currently denies hearing voices. He denies paranoid delusions, but does report paranoia towards previous hospital where he reports his brain was bleeding daily. We discussed risks, benefits and alternative treatment options. He agrees to continue risperidone and lithium. He reports using thorazine for agitation (secondary to psychosis/paranoia) and anxiety with good effect. He also presents with bilateral action tremor, which seems to be related to lithium. No cogwheel or EPS, less likely related to antipsychotic. Recommend to avoid dehydration, limit caffeinated beverages and also discuss adding clonidine or propanolol for tremor. PLAN 1. Admit to M3, CV, 15 minutes checks for safety. 2. Continue risperidone and lithium. Thorazine prn for agitation. 3. start clonidine 0.1mg po bID for tremor and anxiety. If ineffective can switch to propanolol 4. Obtain collateral information 5. Aftercare planning 10/20 continue current medications. d/c clonazepam per pt request and added ativan qhs for sleep. 10/21: increase trazodone to 150 mg QHS for sleep. otherwise continue current mgmt. resolving marco. 10/22 lithium increase to 600mg po BID 10/23 continue tx. 10/24 continue tx. 10/25 continue tx. 10/26 will try to decrease night time ativan to 1mg po qhs, see if he still sleeps with lower dose now that mood more stable. Reason for continued inpatient stay Substantial Risk for: inability to function Time Spent With Patient Time: Total time managing care of this patient today ____ minutes.
[2022-10-26 20:10] VITALS: BP 138/79; PULSE 97; RESP 18; TEMP 36.8; O2SAT 96
[2022-10-26] MEDS: risperiDONE 2 MG TABLET 4 MG PO (20:37)
[2022-10-27] MEDS: OLANZapine 10 MG TABLET PO (02:37)
[2022-10-27] MEDS: hydrOXYzine HCL 25 MG TABLET PO ×2 (03:35→12:13)
[2022-10-27] MEDS: Nicotine Polacrilex 2 MG GUM 4 MG BUCCAL ×3 (07:08→14:21)
[2022-10-27 08:00] VITALS: BP 128/80; PULSE 96; RESP 16; TEMP 36.7; O2SAT 96
[2022-10-27] MEDS: Nicotine 21 MG PATCH.TD24 TRANSDERMA (08:17)
[2022-10-27] MEDS: Lithium Carbonate 300 MG CAPSULE 600 MG PO ×2 (08:17→21:27)
[2022-10-27] MEDS: Ibuprofen 800 MG TABLET PO ×2 (08:17→15:29)
[2022-10-27] MEDS: risperiDONE 2 MG TABLET PO (08:17)
[2022-10-27] MEDS: cloNIDine HCL 0.1 MG TABLET PO ×2 (08:17→21:28)
--- NOTE | 2022-10-27 10:52 | HO.PSYCHPN ---
Subjective Subjective Date of Service: 10/27/22 Reason For Visit: Psychosis Subjective Notes: Conditional Voluntary Interim History: Pt more visible on the unit, he does pace somewhat. He did not sleep as well last night with lower dose of ativan 1mg. He did ask for prn atarax and later was able to sleep. He shows increase insight into some of grandiose and spiritism delusions stating I don't think that's true any more. He denies SI/HI. No overt delusional or psychosis. He reports sleeping and eating well. He has been visible on the unit and attends assigned groups. Hand pain added capsacin prn. He is also utilizing tylenol, ibuprofen. No behavioral concerns. Taking medications as prescribed. Review of Systems Review of Systems Pt reports pain on right hand fingers. No chest pain. No SOB. No loose stools or constipation. No abdominal pain No changes in vision Pt reports tremors bilat hands. Mental Status Exam Mental Status Exam Narrative: Appearance: casually groomed, intense eye contact, in NAD behavior: cooperative Psychomotor: no over agitation or retardation noted Speech: clear, normal rate/rhythm, volume, spontaneous TP: linear in limited interaction TC: no delusions or paranoia expressed Mood: not assessed Affect: full range, flexible, normo-intense SI: none expressed HI: none expressed AVH: none expressed Insight/judgment: fair x 2. Memory/cog: alert, oriented x 4. Diagnostics Vital Signs (24Hr): Vital Signs - 24 hr 10/26/22 20:10 Temperature 98.2 F Pulse Rate 97 Respiratory Rate 18 Blood Pressure 138/79 Pulse Oximetry 96 Oxygen Delivery Method Room Air BMI result Body Mass Index 25.6 Labs 10/19/22 08:37 Imaging Radiology Impressions: ITS Impressions Hand X-Ray 10/20/22 16:15 IMPRESSION: Normal right hand. Medications Medications Current Medications Acetaminophen (Acetaminophen 325 Mg Tablet) 650 mg PO Q6H PRN PRN Reason: Headache/Pain Mild Scale (1-3) Last Admin: 10/26/22 10:24 Dose: 650 mg Al Hydroxide/Mg Hydroxide (Magnesium Hydrox/Alum Hydrox 30 Ml Oral.Susp) 30 ml PO Q6H PRN PRN Reason: Heartburn/Nausea Benztropine Mesylate (Benztropine Mesylate 1 Mg Tablet) 1 mg PO TID PRN PRN Reason: Extrapyramidal Effects Last Admin: 10/23/22 17:36 Dose: 1 mg Capsaicin (Capsaicin 0.025% Cream 60 Gm Tube) 1 appl TOPICAL TID PRN; Protocol PRN Reason: hand pain Clonidine HCl (Clonidine Hcl 0.1 Mg Tablet) 0.1 mg PO BID [facility]; Protocol Last Admin: 10/27/22 08:17 Dose: 0.1 mg Hydroxyzine HCl (Hydroxyzine Hcl 25 Mg Tablet) 25 mg PO Q6H PRN PRN Reason: Anxiety/sleep Ibuprofen (Ibuprofen 800 Mg Tablet) 800 mg PO Q8H PRN PRN Reason: Pain, Moderate(Pain Scale 4-6) Last Admin: 10/27/22 08:17 Dose: 800 mg [place] Carbonate ([place] Carbonate 300 Mg Capsule) 600 mg PO BID [facility] Last Admin: 10/27/22 08:17 Dose: 600 mg Lorazepam (Lorazepam 1 Mg Tablet) 1 mg PO Q12H PRN PRN Reason: anxiety/agitation Last Admin: 10/26/22 14:14 Dose: 1 mg Lorazepam (Lorazepam 1 Mg Tablet) 1 mg PO BEDTIME [facility] Last Admin: 10/26/22 20:40 Dose: 1 mg Magnesium Hydroxide (Milk Of Magnesia 30 Ml Oral.Susp) 30 ml PO DAILY PRN PRN Reason: Constipation Last Admin: 10/25/22 16:21 Dose: 30 ml Nicotine (Nicotine 21 Mg Patch.Td24) 21 mg TRANSDERMA DAILY [facility] Last Admin: 10/27/22 08:17 Dose: 21 mg Nicotine Polacrilex (Nicotine Polacrilex 2 Mg Gum) 4 mg BUCCAL Q2H PRN PRN Reason: Nicotine Cravings Last Admin: 10/27/22 10:25 Dose: 4 mg Olanzapine (Olanzapine 10 Mg Tablet) 10 mg PO Q6H PRN PRN Reason: Agitation Last Admin: 10/27/22 02:37 Dose: 10 mg Risperidone (Risperidone 2 Mg Tablet) 2 mg PO DAILY [facility] Last Admin: 10/27/22 08:17 Dose: 2 mg Risperidone (Risperidone 2 Mg Tablet) 4 mg PO BEDTIME [facility] Last Admin: 10/26/22 20:37 Dose: 4 mg Trazodone HCl (Trazodone Hcl 50 Mg Tablet) 150 mg PO BEDTIME [facility] Last Admin: 10/26/22 20:38 Dose: 150 mg Allergies Allergies Allergy/AdvReac Type Severity Reaction Status Date / Time No Known Allergies Allergy Verified 10/18/22 16:32 Assessment & Plan Assessment & Plan (1) Schizoaffective disorder, bipolar type: Status: Acute Code(s): F25.0 - Schizoaffective disorder, bipolar type Plan Mr. Desouza is a 22 year-old male with hx of Bipolar versus schizoaffective disorder bipolar type (note severity of delusional and psychotic symptoms not exclusively present with mood component). Pt shows some insight into need for treatment. He currently denies hearing voices. He denies paranoid delusions, but does report paranoia towards previous hospital where he reports his brain was bleeding daily. We discussed risks, benefits and alternative treatment options. He agrees to continue risperidone and lithium. He reports using thorazine for agitation (secondary to psychosis/paranoia) and anxiety with good effect. He also presents with bilateral action tremor, which seems to be related to lithium. No cogwheel or EPS, less likely related to antipsychotic. Recommend to avoid dehydration, limit caffeinated beverages and also discuss adding clonidine or propanolol for tremor. PLAN 1. Admit to M3, CV, 15 minutes checks for safety. 2. Continue risperidone and lithium. Thorazine prn for agitation. 3. start clonidine 0.1mg po bID for tremor and anxiety. If ineffective can switch to propanolol 4. Obtain collateral information 5. Aftercare planning 10/20 continue current medications. d/c clonazepam per pt request and added ativan qhs for sleep. 10/21: increase trazodone to 150 mg QHS for sleep. otherwise continue current mgmt. resolving marco. 10/22 lithium increase to 600mg po BID 10/23 continue tx. 10/24 continue tx. 10/25 continue tx. 10/26 will try to decrease night time ativan to 1mg po qhs, see if he still sleeps with lower dose now that mood more stable. 10/27 continue tx. plan for d/c early next week to respite. Reason for continued inpatient stay Substantial Risk for: inability to function Time Spent With Patient Time: Total time managing care of this patient today ____ minutes.
[2022-10-27 11:07] VITALS: BMI 27.6
[2022-10-27] MEDS: Capsaicin 0.025% Cream 60 GM TUBE 1 APPL TOPICAL (11:21)
[2022-10-27] MEDS: LORazepam 1 MG TABLET PO ×2 (13:01→21:28)
[2022-10-27] MEDS: Acetaminophen 325 MG TABLET 650 MG PO (15:28)
[2022-10-27 19:45] VITALS: BP 138/83; PULSE 97; RESP 18; TEMP 36.4; O2SAT 100
[2022-10-27] MEDS: risperiDONE 2 MG TABLET 4 MG PO (21:27)
[2022-10-28] MEDS: OLANZapine 10 MG TABLET PO ×2 (02:49→22:21)
--- NOTE | 2022-10-28 05:00 | PC.NURSE ---
Sin had c/o racing thoughts and dufficulty to remain sleeping. he was given PRN Zyprexa with some effect. this advertising writer reviewed relaxation techniques with the patient. He was able to return to bed and appeared to be sleeping. eview relaxation techniques as needed
[2022-10-28] MEDS: Capsaicin 0.025% Cream 60 GM TUBE 1 APPL TOPICAL (06:54)
[2022-10-28 08:00] VITALS: BP 135/72; PULSE 101; RESP 16; TEMP 36.7; O2SAT 97
[2022-10-28] MEDS: Nicotine 21 MG PATCH.TD24 TRANSDERMA (08:03)
[2022-10-28] MEDS: Acetaminophen 325 MG TABLET 650 MG PO ×2 (08:04→15:27)
[2022-10-28] MEDS: Lithium Carbonate 300 MG CAPSULE 600 MG PO ×2 (08:05→20:10)
[2022-10-28] MEDS: cloNIDine HCL 0.1 MG TABLET PO ×3 (08:05→20:11)
[2022-10-28] MEDS: Ibuprofen 800 MG TABLET PO ×2 (08:05→15:28)
[2022-10-28] MEDS: risperiDONE 2 MG TABLET PO (08:05)
[2022-10-28] MEDS: Nicotine Polacrilex 2 MG GUM 4 MG BUCCAL ×3 (08:16→20:13)
[2022-10-28 09:10] LABS: Lithium 0.39 mmol/L (0.60-1.20)
[2022-10-28] MEDS: Lidocaine 5 % Ointment 35 GM 1 APPL TOPICAL ×2 (11:30→18:00)
[2022-10-28] MEDS: hydrOXYzine HCL 25 MG TABLET PO (12:59)
--- NOTE | 2022-10-28 14:13 | HO.PSYCHPN ---
Subjective Subjective Date of Service: 10/28/22 Reason For Visit: Psychosis Interim History: calm, cooperative, personable. discuss his high anxiety and options for managing it. pt agrees to add an additional dose of clonidine at 3 pm. he also agrees to redistribute his risperidone dosing to move 1 mg from the morning dose to 3 pm. pt expresses desire to wean off of ativan, so PRN dosing switched from 1 mg BID to 0.5 mg. in addition, finger pain discussed, pt reports capsaicin cream only seems to add to the pain. agrees to trial of lidocaine ointment. per staff, pleasant, interactive. social, appropriate. denies psychiatric Sx. taking zyprexa PRNs. Mental Status Exam Mental Status Exam Narrative: Appearance: casually groomed, intense eye contact, in NAD behavior: cooperative Psychomotor: no agitation or retardation noted Speech: clear, normal rate/rhythm, volume, spontaneous TP: linear in limited interaction TC: no delusions or paranoia expressed Mood: not assessed Affect: full range, flexible, normo-intense SI: none expressed HI: none expressed AVH: none expressed Insight/judgment: fair x 2. Memory/cog: alert, oriented x 4. Diagnostics Vital Signs (24Hr): Vital Signs - 24 hr 10/27/22 19:45 10/28/22 08:00 Temperature 97.6 F 98.1 F Pulse Rate 97 101 H Respiratory Rate 18 16 Blood Pressure 138/83 135/72 Pulse Oximetry 100 97 Oxygen Delivery Method Room Air Room Air BMI result Body Mass Index 27.6 Labs 10/19/22 08:37 Labs: Laboratory Results - last 48 hr 10/28/22 08:17 [place] 0.39 L Imaging Radiology Impressions: ITS Impressions Hand X-Ray 10/20/22 16:15 IMPRESSION: Normal right hand. Medications Medications Current Medications Acetaminophen (Acetaminophen 325 Mg Tablet) 650 mg PO Q6H PRN PRN Reason: Headache/Pain Mild Scale (1-3) Last Admin: 10/28/22 08:04 Dose: 650 mg Al Hydroxide/Mg Hydroxide (Magnesium Hydrox/Alum Hydrox 30 Ml Oral.Susp) 30 ml PO Q6H PRN PRN Reason: Heartburn/Nausea Benztropine Mesylate (Benztropine Mesylate 1 Mg Tablet) 1 mg PO TID PRN PRN Reason: Extrapyramidal Effects Last Admin: 10/23/22 17:36 Dose: 1 mg Clonidine HCl (Clonidine Hcl 0.1 Mg Tablet) 0.1 mg PO TID [facility]; Protocol Hydroxyzine HCl (Hydroxyzine Hcl 25 Mg Tablet) 25 mg PO Q6H PRN PRN Reason: Anxiety/sleep Last Admin: 10/28/22 12:59 Dose: 25 mg Ibuprofen (Ibuprofen 800 Mg Tablet) 800 mg PO Q8H PRN PRN Reason: Pain, Moderate(Pain Scale 4-6) Last Admin: 10/28/22 08:05 Dose: 800 mg Lidocaine (Lidocaine 5 % Ointment 35 Gm) 1 appl TOPICAL Q6H PRN; Protocol PRN Reason: Pain, Moderate(Pain Scale 4-6) Last Admin: 10/28/22 11:30 Dose: 1 appl [place] Carbonate ([place] Carbonate 300 Mg Capsule) 600 mg PO BID [facility] Last Admin: 10/28/22 08:05 Dose: 600 mg Lorazepam (Lorazepam 1 Mg Tablet) 1 mg PO BEDTIME [facility] Last Admin: 10/27/22 21:28 Dose: 1 mg Lorazepam (Lorazepam 0.5 Mg Tablet) 0.5 mg PO Q12H PRN PRN Reason: anxiety/agitation Magnesium Hydroxide (Milk Of Magnesia 30 Ml Oral.Susp) 30 ml PO DAILY PRN PRN Reason: Constipation Last Admin: 10/25/22 16:21 Dose: 30 ml Nicotine (Nicotine 21 Mg Patch.Td24) 21 mg TRANSDERMA DAILY [facility] Last Admin: 10/28/22 08:03 Dose: 21 mg Nicotine Polacrilex (Nicotine Polacrilex 2 Mg Gum) 4 mg BUCCAL Q2H PRN PRN Reason: Nicotine Cravings Last Admin: 10/28/22 08:16 Dose: 4 mg Olanzapine (Olanzapine 10 Mg Tablet) 10 mg PO Q6H PRN PRN Reason: Agitation Last Admin: 10/28/22 02:49 Dose: 10 mg Risperidone (Risperidone 2 Mg Tablet) 4 mg PO BEDTIME [facility] Last Admin: 10/27/22 21:27 Dose: 4 mg Risperidone (Risperidone 1 Mg Tablet) 1 mg PO BID@0900,1500 [facility] Trazodone HCl (Trazodone Hcl 50 Mg Tablet) 150 mg PO BEDTIME [facility] Last Admin: 10/26/22 21:27 Dose: 150 mg Allergies Allergies Allergy/AdvReac Type Severity Reaction Status Date / Time No Known Allergies Allergy Verified 10/18/22 16:32 Assessment & Plan Assessment & Plan (1) Schizoaffective disorder, bipolar type: Status: Acute Code(s): F25.0 - Schizoaffective disorder, bipolar type Plan Mr. Desouza is a 22 year-old male with hx of Bipolar versus schizoaffective disorder bipolar type (note severity of delusional and psychotic symptoms not exclusively present with mood component). Pt shows some insight into need for treatment. He currently denies hearing voices. He denies paranoid delusions, but does report paranoia towards previous hospital where he reports his brain was bleeding daily. We discussed risks, benefits and alternative treatment options. He agrees to continue risperidone and lithium. He reports using thorazine for agitation (secondary to psychosis/paranoia) and anxiety with good effect. He also presents with bilateral action tremor, which seems to be related to lithium. No cogwheel or EPS, less likely related to antipsychotic. Recommend to avoid dehydration, limit caffeinated beverages and also discuss adding clonidine or propanolol for tremor. PLAN 1. Admit to M3, CV, 15 minutes checks for safety. 2. Continue risperidone and lithium. Thorazine prn for agitation. 3. start clonidine 0.1mg po bID for tremor and anxiety. If ineffective can switch to propanolol 4. Obtain collateral information 5. Aftercare planning 10/20 continue current medications. d/c clonazepam per pt request and added ativan qhs for sleep. 10/21: increase trazodone to 150 mg QHS for sleep. otherwise continue current mgmt. resolving marco. 10/22 lithium increase to 600mg po BID 10/23 continue tx. 10/24 continue tx. 10/25 continue tx. 10/26 will try to decrease night time ativan to 1mg po qhs, see if he still sleeps with lower dose now that mood more stable. 10/27 continue tx. plan for d/c early next week to respite. 10/28: increase clonidine from 0.1 BID to 0.1 TID for anxiety. change risperidone from 2/4 to 1//4 for mid-day anxiety. decrease ativan PRNs from 1 mg each to 0.5 mg each. DC capsaicin as ineffective, start lidocaine 5% ointment. otherwise continue previous Tx. Reason for continued inpatient stay Substantial Risk for: inability to function and rapid decompensation Time Spent With Patient Time: Total time managing care of this patient today __25__ minutes.
[2022-10-28] MEDS: risperiDONE 1 MG TABLET PO (15:25)
[2022-10-28 20:00] VITALS: BP 132/71; PULSE 95; RESP 16; TEMP 36.9; O2SAT 96
[2022-10-28] MEDS: risperiDONE 2 MG TABLET 4 MG PO (20:10)
[2022-10-28] MEDS: LORazepam 1 MG TABLET PO (20:10)
[2022-10-28] MEDS: traZODone HCL 50 MG TABLET 150 MG PO (20:11)
[2022-10-28] MEDS: Benztropine Mesylate 1 MG TABLET PO (22:21)
[2022-10-29] MEDS: Lidocaine 5 % Ointment 35 GM 1 APPL TOPICAL ×4 (03:58→20:37)
[2022-10-29] MEDS: LORazepam 0.5 MG TABLET PO (04:01)
[2022-10-29 08:11] LABS: Lithium 0.38 mmol/L (0.60-1.20)
[2022-10-29] MEDS: Lithium Carbonate 300 MG CAPSULE 600 MG PO ×2 (08:28→20:35)
[2022-10-29] MEDS: Nicotine Polacrilex 2 MG GUM 4 MG BUCCAL ×3 (08:28→20:37)
[2022-10-29] MEDS: risperiDONE 1 MG TABLET PO ×2 (08:28→14:11)
[2022-10-29 08:35] VITALS: BP 135/72; PULSE 95; TEMP 36.4; O2SAT 95
[2022-10-29] MEDS: cloNIDine HCL 0.1 MG TABLET PO ×3 (08:36→20:36)
--- NOTE | 2022-10-29 09:08 | P.PNPSI_ITS ---
Subjective Subjective Date of Service: 10/29/22 Reason For Visit: Psychosis Subjective Notes: Conditional Voluntary Healthcare Proxy: No Guardianship: No Medical Problems Affecting Mental Status: No Interim History: Patient was seen and discussed in rounds today. Records and plans were revie wed. He has been stable and is doing better. Continues to have pain and discomfort with his fingers with severed tendons after cutting. The lidocaine cream has been extremely helpful. Several questions about it were discussed. He is eating and sleeping adequately. No other complaints or changes. No acute signs of psychosis. No changes were made today No complaints about recent medication changes and regimen. Review of Systems Review of Systems Pt reports pain on right hand fingers. No chest pain. No SOB. No loose stools or constipation. No abdominal pain No changes in vision Pt reports tremors bilat hands. Yes all other systems are reviewed and are negative Mental Status Exam Mental Status Exam Narrative: In today's visit he is alert, oriented and pleasant. Normal speech. Good eye contact. Affect is appropriate and contained. No acute signs of psychosis. No paranoia or delusions. No SI. Cognitively is intact. Judgment is intact Diagnostics Vital Signs (24Hr): Vital Signs - 24 hr 10/28/22 20:00 10/29/22 08:35 Temperature 98.5 F 97.6 F Pulse Rate 95 95 Respiratory Rate 16 Blood Pressure 132/71 135/72 Pulse Oximetry 96 95 Oxygen Delivery Method Room Air Room Air BMI result Body Mass Index 27.6 Labs 10/19/22 08:37 Labs: Laboratory Results - last 48 hr 10/28/22 10/29/22 08:17 07:42 [place] 0.39 L 0.38 L Imaging Radiology Impressions: ITS Impressions Hand X-Ray 10/20/22 16:15 IMPRESSION: Normal right hand. Medications Medications Current Medications Acetaminophen (Acetaminophen 325 Mg Tablet) 650 mg PO Q6H PRN PRN Reason: Headache/Pain Mild Scale (1-3) Last Admin: 10/28/22 15:27 Dose: 650 mg Al Hydroxide/Mg Hydroxide (Magnesium Hydrox/Alum Hydrox 30 Ml Oral.Susp) 30 ml PO Q6H PRN PRN Reason: Heartburn/Nausea Benztropine Mesylate (Benztropine Mesylate 1 Mg Tablet) 1 mg PO TID PRN PRN Reason: Extrapyramidal Effects Last Admin: 10/28/22 22:21 Dose: 1 mg Clonidine HCl (Clonidine Hcl 0.1 Mg Tablet) 0.1 mg PO TID [facility]; Protocol Last Admin: 10/29/22 08:36 Dose: 0.1 mg Fluticasone Propionate (Fluticasone Propionate Nasal 16 Gm [place]) 1 spray NOSTRIL-B DAILY [facility] Hydroxyzine HCl (Hydroxyzine Hcl 25 Mg Tablet) 25 mg PO Q6H PRN PRN Reason: Anxiety/sleep Last Admin: 10/28/22 12:59 Dose: 25 mg Lidocaine (Lidocaine 5 % Ointment 35 Gm) 1 appl TOPICAL Q6H PRN; Protocol PRN Reason: Pain, Moderate(Pain Scale 4-6) Last Admin: 10/29/22 03:58 Dose: 1 appl [place] Carbonate ([place] Carbonate 300 Mg Capsule) 600 mg PO BID [facility] Last Admin: 10/29/22 08:28 Dose: 600 mg Lorazepam (Lorazepam 1 Mg Tablet) 1 mg PO BEDTIME [facility] Last Admin: 10/28/22 20:10 Dose: 1 mg Lorazepam (Lorazepam 0.5 Mg Tablet) 0.5 mg PO Q12H PRN PRN Reason: anxiety/agitation Last Admin: 10/29/22 04:01 Dose: 0.5 mg Magnesium Hydroxide (Milk Of Magnesia 30 Ml Oral.Susp) 30 ml PO DAILY PRN PRN Reason: Constipation Last Admin: 10/25/22 16:21 Dose: 30 ml Nicotine (Nicotine 21 Mg Patch.Td24) 21 mg TRANSDERMA DAILY [facility] Last Admin: 10/29/22 08:28 Dose: Not Given Nicotine Polacrilex (Nicotine Polacrilex 2 Mg Gum) 4 mg BUCCAL Q2H PRN PRN Reason: Nicotine Cravings Last Admin: 10/29/22 08:28 Dose: 4 mg Olanzapine (Olanzapine 10 Mg Tablet) 10 mg PO Q6H PRN PRN Reason: Agitation Last Admin: 10/28/22 22:21 Dose: 10 mg Risperidone (Risperidone 2 Mg Tablet) 4 mg PO BEDTIME [facility] Last Admin: 10/28/22 20:10 Dose: 4 mg Risperidone (Risperidone 1 Mg Tablet) 1 mg PO BID@0900,1500 [facility] Last Admin: 10/29/22 08:28 Dose: 1 mg Trazodone HCl (Trazodone Hcl 50 Mg Tablet) 150 mg PO BEDTIME [facility] Last Admin: 10/28/22 20:11 Dose: 150 mg Allergies Allergies Allergy/AdvReac Type Severity Reaction Status Date / Time No Known Allergies Allergy Verified 10/18/22 16:32 Assessment & Plan Assessment & Plan (1) Schizoaffective disorder, bipolar type: Status: Acute Code(s): F25.0 - Schizoaffective disorder, bipolar type Plan Mr. Desouza is a 22 year-old male with hx of Bipolar versus schizoaffective disorder bipolar type (note severity of delusional and psychotic symptoms not exclusively present with mood component). Pt shows some insight into need for treatment. He currently denies hearing voices. He denies paranoid delusions, but does report paranoia towards previous hospital where he reports his brain was bleeding daily. We discussed risks, benefits and alternative treatment options. He agrees to continue risperidone and lithium. He reports using thorazine for agitation (secondary to psychosis/paranoia) and anxiety with good effect. He also presents with bilateral action tremor, which seems to be related to lithium. No cogwheel or EPS, less likely related to antipsychotic. Recommend to avoid dehydration, limit caffeinated beverages and also discuss adding clonidine or propanolol for tremor. PLAN 1. Admit to M3, CV, 15 minutes checks for safety. 2. Continue risperidone and lithium. Thorazine prn for agitation. 3. start clonidine 0.1mg po bID for tremor and anxiety. If ineffective can switch to propanolol 4. Obtain collateral information 5. Aftercare planning 10/20 continue current medications. d/c clonazepam per pt request and added ativan qhs for sleep. 10/21: increase trazodone to 150 mg QHS for sleep. otherwise continue current mgmt. resolving marco. 10/22 lithium increase to 600mg po BID 10/23 continue tx. 10/24 continue tx. 10/25 continue tx. 10/26 will try to decrease night time ativan to 1mg po qhs, see if he still sleeps with lower dose now that mood more stable. 10/27 continue tx. plan for d/c early next week to respite. 10/28: increase clonidine from 0.1 BID to 0.1 TID for anxiety. change risperidone from 2/4 to 1//4 for mid-day anxiety. decrease ativan PRNs from 1 mg each to 0.5 mg each. DC capsaicin as ineffective, start lidocaine 5% ointment. otherwise continue previous Tx. 10/29: Continue current regimen and plans Reason for continued inpatient stay Substantial Risk for: harm to self and med/psych decompensation Time Spent With Patient Time: Total time managing care of this patient today ____ minutes.
--- NOTE | 2022-10-29 09:16 | PC.NURSE ---
Per Dr. Higginbotham may administer Lidocaine Ointment early.
[2022-10-29] MEDS: hydrOXYzine HCL 25 MG TABLET PO (10:52)
[2022-10-29] MEDS: Fluticasone Propionate Nasal 16 GM SPRAY 1 SPRAY NOSTRIL-B (13:18)
[2022-10-29 14:03] VITALS: BP 128/68; PULSE 85; RESP 18; O2SAT 97
[2022-10-29 14:04] VITALS: BP 128/68; PULSE 85; RESP 18; O2SAT 97
[2022-10-29] MEDS: Acetaminophen 325 MG TABLET 650 MG PO (14:43)
[2022-10-29 20:20] VITALS: BP 140/79; PULSE 96; RESP 18; TEMP 36.6; O2SAT 96
[2022-10-29] MEDS: traZODone HCL 50 MG TABLET 150 MG PO (20:34)
[2022-10-29] MEDS: risperiDONE 2 MG TABLET 4 MG PO (20:35)
[2022-10-29] MEDS: LORazepam 1 MG TABLET PO (20:35)
[2022-10-30] MEDS: OLANZapine 10 MG TABLET PO (02:19)
[2022-10-30] MEDS: Nicotine Polacrilex 2 MG GUM 4 MG BUCCAL ×4 (02:19→17:51)
[2022-10-30] MEDS: Lidocaine 5 % Ointment 35 GM 1 APPL TOPICAL ×2 (04:43→17:36)
[2022-10-30] MEDS: hydrOXYzine HCL 25 MG TABLET PO (06:23)
[2022-10-30 08:00] VITALS: BP 135/72; PULSE 95; RESP 18; TEMP 36.4; O2SAT 96
[2022-10-30] MEDS: cloNIDine HCL 0.1 MG TABLET PO ×3 (08:12→21:13)
[2022-10-30] MEDS: Acetaminophen 325 MG TABLET 650 MG PO ×2 (08:12→17:33)
[2022-10-30] MEDS: risperiDONE 1 MG TABLET PO ×2 (08:12→14:44)
[2022-10-30] MEDS: Nicotine 21 MG PATCH.TD24 TRANSDERMA (08:12)
[2022-10-30] MEDS: Lithium Carbonate 300 MG CAPSULE 600 MG PO ×2 (08:13→21:12)
[2022-10-30] MEDS: Fluticasone Propionate Nasal 16 GM SPRAY 1 SPRAY NOSTRIL-B (08:13)
[2022-10-30] MEDS: LORazepam 0.5 MG TABLET PO (08:20)
--- NOTE | 2022-10-30 08:45 | HO.PSYCHPN ---
Subjective Subjective Date of Service: 10/30/22 Reason For Visit: Psychosis Subjective Notes: Conditional Voluntary Healthcare Proxy: No Guardianship: No Medical Problems Affecting Mental Status: No Interim History: Patient was seen and discussed in rounds today. Records and plans were reviewed. He continues to be doing quite well and states that he is improved and is looking forward to being discharged. He is medication compliant. No complaints or side effects. He had a good visit with his mother yesterday. Eating and sleeping adequately. No changes were made today Medication Compliance: Yes Side effects from medications: No Attending Groups: Yes Review of Systems Review of Systems Pt reports pain on right hand fingers. No chest pain. No SOB. No loose stools or constipation. No abdominal pain No changes in vision Pt reports tremors bilat hands. Yes all other systems are reviewed and are negative Mental Status Exam Mental Status Exam Narrative: In today's visit he is alert, oriented and pleasant. Normal speech. Good eye contact. Affect is appropriate and contained. No acute signs of psychosis. No paranoia or delusions. No SI. Cognitively is intact. Judgment is intact Diagnostics Vital Signs (24Hr): Vital Signs - 24 hr 10/29/22 14:03 10/29/22 14:04 10/29/22 20:20 Temperature 97.9 F Pulse Rate 85 85 96 Respiratory Rate 18 18 18 Blood Pressure 128/68 128/68 140/79 H Pulse Oximetry 97 97 96 Oxygen Delivery Method Room Air Room Air Room Air BMI result Body Mass Index 27.6 Labs 10/19/22 08:37 Labs: Laboratory Results - last 48 hr 10/28/22 10/29/22 08:17 07:42 [place] 0.39 L 0.38 L Imaging Radiology Impressions: ITS Impressions Hand X-Ray 10/20/22 16:15 IMPRESSION: Normal right hand. Medications Medications Current Medications Acetaminophen (Acetaminophen 325 Mg Tablet) 650 mg PO Q6H PRN PRN Reason: Headache/Pain Mild Scale (1-3) Last Admin: 10/30/22 08:12 Dose: 650 mg Al Hydroxide/Mg Hydroxide (Magnesium Hydrox/Alum Hydrox 30 Ml Oral.Susp) 30 ml PO Q6H PRN PRN Reason: Heartburn/Nausea Benztropine Mesylate (Benztropine Mesylate 1 Mg Tablet) 1 mg PO TID PRN PRN Reason: Extrapyramidal Effects Last Admin: 10/28/22 22:21 Dose: 1 mg Clonidine HCl (Clonidine Hcl 0.1 Mg Tablet) 0.1 mg PO TID [facility]; Protocol Last Admin: 10/30/22 08:12 Dose: 0.1 mg Fluticasone Propionate (Fluticasone Propionate Nasal 16 Gm [place]) 1 spray NOSTRIL-B DAILY [facility] Last Admin: 10/30/22 08:13 Dose: 1 spray Hydroxyzine HCl (Hydroxyzine Hcl 25 Mg Tablet) 25 mg PO Q6H PRN PRN Reason: Anxiety/sleep Last Admin: 10/30/22 06:23 Dose: 25 mg Lidocaine (Lidocaine 5 % Ointment 35 Gm) 1 appl TOPICAL Q6H PRN; Protocol PRN Reason: Pain, Moderate(Pain Scale 4-6) Last Admin: 10/30/22 04:43 Dose: 1 appl [place] Carbonate ([place] Carbonate 300 Mg Capsule) 600 mg PO BID [facility] Last Admin: 10/30/22 08:13 Dose: 600 mg Lorazepam (Lorazepam 1 Mg Tablet) 1 mg PO BEDTIME [facility] Last Admin: 10/29/22 20:35 Dose: 1 mg Lorazepam (Lorazepam 0.5 Mg Tablet) 0.5 mg PO Q12H PRN PRN Reason: anxiety/agitation Last Admin: 10/30/22 08:20 Dose: 0.5 mg Magnesium Hydroxide (Milk Of Magnesia 30 Ml Oral.Susp) 30 ml PO DAILY PRN PRN Reason: Constipation Last Admin: 10/25/22 16:21 Dose: 30 ml Nicotine (Nicotine 21 Mg Patch.Td24) 21 mg TRANSDERMA DAILY [facility] Last Admin: 10/30/22 08:12 Dose: 21 mg Nicotine Polacrilex (Nicotine Polacrilex 2 Mg Gum) 4 mg BUCCAL Q2H PRN PRN Reason: Nicotine Cravings Last Admin: 10/30/22 08:20 Dose: 4 mg Olanzapine (Olanzapine 10 Mg Tablet) 10 mg PO Q6H PRN PRN Reason: Agitation Last Admin: 10/30/22 02:19 Dose: 10 mg Risperidone (Risperidone 2 Mg Tablet) 4 mg PO BEDTIME [facility] Last Admin: 10/29/22 20:35 Dose: 4 mg Risperidone (Risperidone 1 Mg Tablet) 1 mg PO BID@0900,1500 [facility] Last Admin: 10/30/22 08:12 Dose: 1 mg Trazodone HCl (Trazodone Hcl 50 Mg Tablet) 150 mg PO BEDTIME [facility] Last Admin: 10/29/22 20:34 Dose: 150 mg Allergies Allergies Allergy/AdvReac Type Severity Reaction Status Date / Time No Known Allergies Allergy Verified 10/18/22 16:32 Assessment & Plan Assessment & Plan (1) Schizoaffective disorder, bipolar type: Status: Acute Code(s): F25.0 - Schizoaffective disorder, bipolar type Plan Mr. Desouza is a 22 year-old male with hx of Bipolar versus schizoaffective disorder bipolar type (note severity of delusional and psychotic symptoms not exclusively present with mood component). Pt shows some insight into need for treatment. He currently denies hearing voices. He denies paranoid delusions, but does report paranoia towards previous hospital where he reports his brain was bleeding daily. We discussed risks, benefits and alternative treatment options. He agrees to continue risperidone and lithium. He reports using thorazine for agitation (secondary to psychosis/paranoia) and anxiety with good effect. He also presents with bilateral action tremor, which seems to be related to lithium. No cogwheel or EPS, less likely related to antipsychotic. Recommend to avoid dehydration, limit caffeinated beverages and also discuss adding clonidine or propanolol for tremor. PLAN 1. Admit to M3, CV, 15 minutes checks for safety. 2. Continue risperidone and lithium. Thorazine prn for agitation. 3. start clonidine 0.1mg po bID for tremor and anxiety. If ineffective can switch to propanolol 4. Obtain collateral information 5. Aftercare planning 10/20 continue current medications. d/c clonazepam per pt request and added ativan qhs for sleep. 10/21: increase trazodone to 150 mg QHS for sleep. otherwise continue current mgmt. resolving marco. 10/22 lithium increase to 600mg po BID 10/23 continue tx. 10/24 continue tx. 10/25 continue tx. 10/26 will try to decrease night time ativan to 1mg po qhs, see if he still sleeps with lower dose now that mood more stable. 10/27 continue tx. plan for d/c early next week to respite. 10/28: increase clonidine from 0.1 BID to 0.1 TID for anxiety. change risperidone from 06/18 to 1/1/4 for mid-day anxiety. decrease ativan PRNs from 1 mg each to 0.5 mg each. DC capsaicin as ineffective, start lidocaine 5% ointment. otherwise continue previous Tx. 10/29: Continue current regimen and plans 10/30: Continue current regimen and plans Reason for continued inpatient stay Substantial Risk for: med/psych decompensation Time Spent With Patient Time: Total time managing care of this patient today ____ minutes.
[2022-10-30 14:45] VITALS: BP 140/74; PULSE 92
[2022-10-30 20:40] VITALS: BP 134/76; PULSE 85; RESP 18; TEMP 36.8; O2SAT 96
[2022-10-30] MEDS: traZODone HCL 50 MG TABLET 150 MG PO (21:10)
[2022-10-30] MEDS: risperiDONE 2 MG TABLET 4 MG PO (21:11)
[2022-10-30] MEDS: LORazepam 1 MG TABLET PO (21:13)
[2022-10-31] MEDS: OLANZapine 10 MG TABLET PO (03:03)
[2022-10-31] MEDS: Lidocaine 5 % Ointment 35 GM 1 APPL TOPICAL (05:09)
[2022-10-31 06:00] VITALS: BP 136/80; PULSE 99; RESP 16; TEMP 36.8; O2SAT 96
[2022-10-31] MEDS: Nicotine Polacrilex 2 MG GUM 4 MG BUCCAL (06:53)
[2022-10-31] MEDS: cloNIDine HCL 0.1 MG TABLET PO (08:13)
[2022-10-31] MEDS: Fluticasone Propionate Nasal 16 GM SPRAY 1 SPRAY NOSTRIL-B (08:13)
[2022-10-31] MEDS: risperiDONE 1 MG TABLET PO (08:13)
[2022-10-31] MEDS: Nicotine 21 MG PATCH.TD24 TRANSDERMA (08:13)
[2022-10-31] MEDS: Lithium Carbonate 300 MG CAPSULE 600 MG PO (08:13)
--- NOTE | 2022-10-31 10:29 | PM.PSYDC ---
DS: Providers Provider Date of Service: 10/31/22 Date of admission: 10/18/22 15:33 Primary care physician: Unknown Physician Consults: 10/18/22 16:32 Consult to Hospitalist Routine Comment: Consulting Provider: Hospitalist Reason For Exam: OSH admission 10/20/22 14:42 Consult to Orthopedics Routine Consulting Provider: [facility] Reason for consultation: right fracture of 4th phalynx Has provider been notified: Yes DS: Diagnosis Discharge Diagnosis (1) Schizoaffective disorder, bipolar type: Status: Acute DS: Medications Discharge Medications Home Medications: Previous Rx's Medication Instructions Recorded clonidine HCl 0.1 mg tablet 0.1 mg PO TID #90 tabs 10/31/22 fluticasone propionate 50 1 spray intranasal DAILY #16 grams 10/31/22 mcg/actuation nasal spray,suspension lidocaine 5 % topical ointment 1 appl topical Q6H PRN Pain, 10/31/22 Moderate(Pain Scale 4-6) #30 grams lithium carbonate 600 mg capsule 600 mg PO BID #60 caps 10/31/22 lorazepam 1 mg tablet 1 mg PO BEDTIME #30 tabs 10/31/22 nicotine (polacrilex) 2 mg gum 4 mg buccal Q2H PRN Nicotine 10/31/22 Cravings #30 ea nicotine 21 mg/24 hr daily 21 mg transdermal DAILY #30 ea 10/31/22 transdermal patch olanzapine 10 mg tablet 10 mg PO BID PRN Agitation #60 tabs 10/31/22 risperidone 1 mg tablet 1 mg PO BID@0900,1500 #60 tabs 10/31/22 risperidone 4 mg tablet 4 mg PO BEDTIME #30 tabs 10/31/22 trazodone 150 mg tablet 150 mg PO BEDTIME #30 tabs 10/31/22 Data Data Completed and Pending Completed studies during hospitalization [Text1]: 10/28/22 10/29/22 08:17 07:42 [employer] 0.39 L 0.38 L Imaging Diagnostic Imaging Impressions Hand X-Ray 10/20/22 16:15 IMPRESSION: Normal right hand. DS: Summary Hospital Course Hospital Course: Subjective Notes: Barker Warning (given and shows understanding) and Conditional Voluntary Narrative: Mr. Desouza is a 22 year-old male with hx of Bipolar Disorder versus schizoaffective disorder who was brought via EMS to [facility] after police was called by father, after pt called father and told him that he was [place] the , trying to wake them up . Per records, in ED, pt reported hearing God's voice and trying to wake up people to talk to them. Pt had recent inpatient admission in [place] after cutting tips of finger with glass and then trying to fuse them back by heating them in the oven while having a psychotic and delusional episode discharged end of September. He then came to [facility] and has stayed with his father since then. In the ED, his utox is positive for cannabinoids. On the unit, pt presents as pleasant. He reports he is atypical. He reports his brain is non typical but no one knows what's going on with me. He reports he was recently in psychiatric unit in [place] for about 3 weeks and reports my brain was bleeding every day because they gave me too much lithium. He reports he had a manic episode and now feels more depressed. When asked to elaborate on current mood, pt states I really feel perfect. He denies suicidal or homicidal ideation. He reports when he left his father's house he was not feeling right. He states he can't elaborate or explained what he felt but he states that he was not doing well. He denies hearing voices. 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 He reports feeling safe here on the unit. He agrees to continue current medications including combination of lithium and risperidone. He reports bilat tremors, noted on exam- action tremors and asks if he can start a medication for this. He reports he hopes to go to groups and continue to get treatment prior to being discharge. Past Psychiatric History: Inpatient: [place] 09/2022, [facility] 2018. OP: currently being connected with [facility]. He reports prior prescriber out in [place] ? Past trials: olanzapine, ativan, risperidone, lithium, thorazine (reports this medications is helpful when feeling agitated). Hx of suicide attempts: denies Medical Evaluation Reviewed: Yes HOSPITAL COURSE On the unit, pt was admitted on a CV and placed on 15 minutes checks for safety. Pt reported zoroastrian ideas and feeling like God had given him the task to safe the world. He presented with some grandiose ideas of having a jet, having to unclaimed lands in the world. After discussing risks, benefits and alternative treatment options, pt agreed to continue risperidone and lithium. He gradually presented with much less zoroastrian ideas and less grandiose ideas. He showed increased insight as to need to continue medications and OP psychiatric treatment. He denied suicidal or homicidal ideation. Pt had some difficulty falling asleep and staying asleep. He was started on ativan 1mg po qhs. He was also started on trazodone 150mg po qhs. His dose of risperidone was increase to 3mg po BID. He had prn olanzapine which he continued to take regularly, but can be taper off outpatient as he continues to improve and return to baseline. There were no incidences of disruptive behaviors nor need for restrains. Pt was visible on the unit, social with peers. He was polite and pleasant throughout his hospital stay. Collateral information gathered from his mother who reports pt appears in much improved condition and stable to be discharged. She denied any safety concerns. Time spent discussing smoking cessation with patient: 3 to 10 minutes Status at Discharge Cognitive/behavioral status at discharge: Pt with brighter, non labile affect. No overt zoroastrian or grandiose delusions. No overt signs of psychosis. No SI/HI. Insight insight into need for treatment and medications. Pt future oriented. Sleep improved but at times does wake up early. Functional status at discharge: independent ambulation Overall status at discharge: patient is progressing back to baseline Time Spent with Patient Time attestation: Total time managing care of this patient today __30__ minutes. Time spent: Greater than 30 minutes Discharge Plan Discharge Anticipated Discharge Date/Time: 10/31/22 10:19 Patient Disposition: Home, Self-Care Discharge Diagnosis: Schizoaffective disorder bipolar type Referrals: [facility] [Provider Group] - 1 Week Mario Michaels MD [Physician] - 11/01/22 10:30 am (PCP follow up November 01 at 10:30am with Dr. Mario Michaels - [address] [place] [address]) PhysicianNirmala [Primary Care Provider] - 1 Week Discharge Medications: New clonidine HCl 0.1 mg Tablet 0.1 mg PO TID Qty: 90 0RF Protocol: Hold for SBP< HOLD for SBP < : 90 nicotine (polacrilex) 2 mg Gum 4 mg buccal Q2H PRN (Reason: Nicotine Cravings) Qty: 30 0RF nicotine 21 mg/24 hr Patch 24 Hour 21 mg transdermal DAILY Qty: 30 0RF lithium carbonate 600 mg capsule 600 mg PO BID Qty: 60 0RF lorazepam 1 mg Tablet 1 mg PO BEDTIME Qty: 30 0RF risperidone 1 mg Tablet 1 mg PO BID@0900,1500 Qty: 60 0RF risperidone 4 mg tablet 4 mg PO BEDTIME Qty: 30 0RF trazodone 150 mg tablet 150 mg PO BEDTIME Qty: 30 0RF fluticasone propionate 50 mcg/actuation [place],Suspension 1 spray intranasal DAILY Qty: 16 0RF lidocaine 5 % Ointment 1 appl topical Q6H PRN (Reason: Pain, Moderate(Pain Scale 4-6)) Qty: 30 0RF Protocol: Apply to: Apply to: right ring and middle fingers olanzapine 10 mg Tablet 10 mg PO BID PRN (Reason: Agitation) Qty: 60 0RF Discharge Orders: Discharge Order (Routine); Ordered 10/31/22 Ordered By: Hayley Benavides Diet: Regular diet Activity on Discharge: As tolerated Stand Alone Forms: Patient Portal Discharge page Care Plan Goals: 1. Maintain mood 2. No SI/HI 3. No overt psychosis or delusions 4. No aggression towards self or others. Health Concerns: Follow up with PCP Plan of Treatment: 1. Take medications as prescribed 2. Go to nearest ED or call 911 in event of emergency Assessment: Pt with brighter, non labile affect. No SI/HI. No over psychosis or delusions. No aggression towards self or others. future oriented.
--- NOTE | 2022-10-31 12:46 | PC.NURSE ---
Jerri is alert, fully oriented, pleasant and cooperative with discharge process. He denies ideation, plan or intent to harm self or others. He denies current physical complaint. He verbalizes understanding of discharge medications and appointments.
== END 2022-10-31 13:50 | disposition home or self-care (01) | DRG 750 ==
PROVIDERS: Internal Medicine; Psychiatry & Neurology Psychiatry; Admitting Provider Psychiatry & Neurology Psychiatry; Visit Provider Social Worker
DX: F25.0 Schizoaffective disorder, bipolar type (principal); F17.210 Nicotine dependence, cigarettes, uncomplicated; Z71.6 Tobacco abuse counseling; Z79.51 Long term (current) use of inhaled steroids; Z79.899 Other long term (current) drug therapy
CPT/HCPCS: 36415; 73130; 80053; 80061; 80178; 82607; 82746; 83036; 84439; 84443

== ENCOUNTER 2022-12-01 14:00 | Emergency (ER) | payer OTHER, SELFPAY ==
[2022-12-01 14:49] VITALS: BP 147/86; PULSE 63; RESP 16; TEMP 36.6; O2SAT 98; BMI 28.5
--- NOTE | 2022-12-01 14:49 | ED.GENADULT ---
HPI - General Adult General Chief complaint: General Medical Stated complaint: blood pressure? Time Seen by Provider: 12/01/22 16:25 Source: patient and family Mode of arrival: ambulatory Limitations: no limitations History of Present Illness HPI narrative: 22-year-old male with history of bipolar disorder presents for possible adverse reactions to medications. Patient is noted that he has been having increasing sedation, blurred vision. He was recently discharged from [facility] for an apparently significantly debilitating bipolar manic episode patient at this time denies any suicidal homicidal ideation. He is here with his mother. He is taking his medications appropriately. He notes after taking respiratory own that he does get some blurred vision. He has had increasing slurred speech trauma after taking his medications at well. He has been compliant with his medications. He denies any self-harming behavior. He has not been using THC for approximately 1 week. He is interested in knowing if it is okay for him. He denies any other drug or alcohol use at this time. Related Data Previous Rx's Medication Instructions Recorded clonidine HCl 0.1 mg tablet 0.1 mg PO TID #90 tabs 10/31/22 fluticasone propionate 50 1 spray intranasal DAILY #16 grams 10/31/22 mcg/actuation nasal spray,suspension lidocaine 5 % topical ointment 1 appl topical Q6H PRN Pain, 10/31/22 Moderate(Pain Scale 4-6) #30 grams lithium carbonate 600 mg capsule 600 mg PO BID #60 caps 10/31/22 lorazepam 1 mg tablet 1 mg PO BEDTIME #30 tabs 10/31/22 nicotine (polacrilex) 2 mg gum 4 mg buccal Q2H PRN Nicotine 10/31/22 Cravings #30 ea nicotine 21 mg/24 hr daily 21 mg transdermal DAILY #30 ea 10/31/22 transdermal patch olanzapine 10 mg tablet 10 mg PO BID PRN Agitation #60 tabs 10/31/22 risperidone 1 mg tablet 1 mg PO BID@0900,1500 #60 tabs 10/31/22 risperidone 4 mg tablet 4 mg PO BEDTIME #30 tabs 10/31/22 trazodone 150 mg tablet 150 mg PO BEDTIME #30 tabs 10/31/22 Allergies Allergy/AdvReac Type Severity Reaction Status Date / Time No Known Allergies Allergy Verified 12/01/22 14:49 Review of Systems Review of Systems: CONSTITUTIONAL: Denies weight loss, fever and chills. HEENT: + changes in vision and no hearing. RESPIRATORY: Denies SOB and cough. CV: Denies palpitations no CP. GI: Denies abdominal pain, nausea, vomiting and diarrhea. : Denies dysuria and urinary frequency. MSK: Denies myalgia and joint pain. SKIN: Denies rash and pruritus. NEUROLOGICAL: Denies headache and syncope. PSYCHIATRIC: Denies recent changes in mood. Denies anxiety and depression. All other ROS are negative unless in HPI PMFSH Past Medical History Medical History No pertinent past medical history Social History Social History Household Members: Family Housing: House Do you presently have visiting nurse or other home services: No Alcohol intake: never Patient Tobacco Use Status: Current everyday Tobacco user Second Hand Smoke Exposure: No Use of substances other than those prescribed or required for medical reasons: Yes Substance Use Type: Marijuana Advance Directives: No Advance Directives Information Provided: Yes service: No Sexual orientation: Decline to Answer Physical Exam ED Vital Signs: Vital Signs - 24 hr 12/01/22 14:49 12/01/22 16:24 12/01/22 16:32 Temperature 97.8 F 98.4 F Pulse Rate 63 68 93 Respiratory Rate 16 16 18 Blood Pressure 147/86 H 136/76 136/76 Pulse Oximetry 98 97 97 Oxygen Delivery Method Room Air Room Air BMI result Body Mass Index 28.5 GEN: Well developed, no acute distress, alert, oriented HEENT: Normocephalic, atraumatic, normal external ears, nose appears normal, no oropharyngeal edema or exudates Eyes: Normal to appearance Neck: Supple, no lymphadenopathy Respiratory: Talks in complete sentences, no respiratory distress, clear to auscultation bilaterally Cardiovascular: Regular rate and rhythm, no murmurs rubs or gallops Abdomen: Soft, nontender, nondistended, no guarding, no rebound Back: No CVA tenderness Extremities: No clubbing cyanosis or edema Neurologic: No focal neurologic deficits, cranial nerves 2-12 intact, strength is 5/5 bilaterally Skin: No rash Course Course Course Narrative: This is a 31-znlh-ef[age]-male, with a hx schizophrenia, presenting to the emergency department for evaluation of ? Medication side effect. Patient was just started on risperidone 1 mg QAM and QHS, and lithium 600 mg b.i.d. 4 weeks ago and has not felt right since. Patient reports that he has had dizziness and diarrhea. Mother has attempted to write out a psychiatrist however they were unable to see him until the end of December. Patient denies any fevers, chills, abdominal pain, chest pain or shortness breast, vomiting, bloody or black stool. Patient is currently seeing a psychiatrist, Guerda Starr, through [facility]. Plan: Labs, lithium and risperidone level ordered. Reevaluation(s) Reevaluation #1: I had an extensive conversation with the mother and patient lasting approximately 30 minutes. I also had approximately 15-20 minute conversation with the FIREMAN HELPER who was responsible for his care during his hospitalization. We will be making some medication adjustments which has been discussed with the patient and mother. Patient will continue taking lithium as prescribed. Clonidine continue 0.1 mg 3 times daily. Olanzapine can be discontinued which he is only taking at night It is recommended that he continue the rest per down 1 mg at 9:00 a.m. and 3:00 p.m. as well as 4 mg at night. However the recommendations as to at least have a total 4 mg in a 24 hour. If patient and mother preferred to change this, they can reduce the nighttime dose to 2 mg from 4 mg. Patient can discontinue trazodone. Patient can discontinue Ativan 1 mg at nighttime Time: 17:44 Medical Decision Making Medical Decision Making [facility] Narrative: 22-year-old male presents with multiple complaints including sedation, blurred vision. Patient was discharged recently from the hospital for psychiatric reasons due to bipolar disorder. He is on multiple new medications. Is possible that these are side effects of the medications. Will check routine laboratory analysis to make sure there is no significant electrolyte abnormality, anemia or other metabolic abnormality. I would also like to reach out to the FIREMAN HELPER who prescribed his medications see if there are any adjustments we can make to hopefully improve his symptoms. Differential Diagnosis Differential Diagnoses: The differential diagnosis associated with the presentation includes ([place] toxicity, polypharmacy a, anemia, electrolyte abnormality, substance abuse) Admission/Observation Consideration of admission/observation: Escalation of care including admission/observation considered Consult Healthcare Provider Management of the patient was discussed with: Energy Analyst (OK Benavides) Lab Data MDM Lab Attestation statement: I reviewed the patient's lab results. 12/01/22 15:07 12/01/22 15:07 Labs: Lab Results 12/01/22 12/01/22 12/01/22 Range/Units 15:07 15:07 15:07 WBC 10.0 (4.8-10.8) X10*3/uL RBC 5.28 (4.60-5.80) X10*6/uL Hgb 15.8 (14.0-18.0) g/dl Hct 45.4 (42.0-52.0) % MCV 86.0 (80.0-98.0) fL MCH 29.9 (27.0-33.0) pg MCHC 34.8 (31.0-36.0) g/dl RDW 11.9 (11.0-16.0) % Plt Count 266 (160-400) X10*3/uL MPV 9.0 L (9.4-12.4) fL Immature Gran % (Auto) 0.3 (0.0-0.4) % Neut % (Auto) 76.6 H (45-73) % Lymph % (Auto) 16.5 L (20-40) % [place] % (Auto) 5.5 (2-11) % Eos % (Auto) 0.9 (0-4) % Baso % (Auto) 0.2 (0-2) % Lymph # (Auto) 1.7 (1.2-4.9) X10*3/uL [place] # (Auto) 0.6 (0.1-1.2) X10*3/uL Eos # (Auto) 0.1 (0.0-0.4) X10*3/uL Baso # (Auto) 0.0 (0.0-0.2) X10*3/uL Abs Immat Gran (auto) 0.03 (0.00-0.03) X10*3/uL Absolute Neuts (auto) 7.7 (2.0-8.3) x10*3/uL Absolute Nucleated RBC 0.000 (0.0-0.012) X10*3/uL Nucleated RBC % (auto) 0.0 (0.0-0.2) /100WBC Sodium 137 (135-145) mmol/L Potassium 3.9 D (3.3-5.1) mmol/L Chloride 103 (96-108) mmol/L Carbon Dioxide 23 (22-29) mmol/L Anion Gap 15 (12-20) BUN 14 (9-16) mg/dL Creatinine 0.99 (0.5-1.4) mg/dL Estim Creat Clear Calc 129.3 Estimated GFR > 60 Random Glucose 95 (60-115) mg/dL Calcium 10.2 (8.4-10.2) mg/dL Total Bilirubin 0.5 (0.0-1.0) mg/dL Direct Bilirubin 0.2 (0.0-0.5) mg/dL AST 18 (5-37) U/L ALT 15 (0-40) U/L Alkaline Phosphatase 88 (39-117) U/L Total Protein 8.4 H (6.5-8.0) g/dL Albumin 5.0 (3.5-5.0) g/dL [place] 0.56 L (0.60-1.20) mmol/L Independent Historian Clinical information obtained from an independent historian. History obtained from or confirmed by: Parent External Record Review External record reviewed: Inpatient record Chronic Conditions Patient?s care impacted by: Other (Bipolar disorder) Discharge Plan Discharge Clinical Impression: Bipolar disorder Patient Disposition: Home, Self-Care Instructions: Bipolar Disorder (ED) Additional Instructions: Continue Clonidine 0.1 mg three times daily Continue [place] 600 mg twice daily You may stop taking lorazepam 1 mg at night You may stop taking olanzapine 10 mg at night (which was as needed) Continue Risperidone 1 mg at 9 am and 3 pm It is recommended that you continue Risperidone 4 mg at night, however if you prefer to reduce to 2 mg at night that would be acceptable. You need to be on at least 4 mg of risperidone within a 24 hour period of time You may stop trazodone Prescriptions: No Action clonidine HCl 0.1 mg Tablet 0.1 mg PO TID Qty: 90 0RF Protocol: Hold for SBP< HOLD for SBP < : 90 nicotine (polacrilex) 2 mg Gum 4 mg buccal Q2H PRN (Reason: Nicotine Cravings) Qty: 30 0RF nicotine 21 mg/24 hr Patch 24 Hour 21 mg transdermal DAILY Qty: 30 0RF lithium carbonate 600 mg capsule 600 mg PO BID Qty: 60 0RF lorazepam 1 mg Tablet 1 mg PO BEDTIME Qty: 30 0RF risperidone 1 mg Tablet 1 mg PO BID@0900,1500 Qty: 60 0RF risperidone 4 mg tablet 4 mg PO BEDTIME Qty: 30 0RF trazodone 150 mg tablet 150 mg PO BEDTIME Qty: 30 0RF fluticasone propionate 50 mcg/actuation [place],Suspension 1 spray intranasal DAILY Qty: 16 0RF lidocaine 5 % Ointment 1 appl topical Q6H PRN (Reason: Pain, Moderate(Pain Scale 4-6)) Qty: 30 0RF Protocol: Apply to: Apply to: right ring and middle fingers olanzapine 10 mg Tablet 10 mg PO BID PRN (Reason: Agitation) Qty: 60 0RF Referrals: Physician,Unknown J [Primary Care Provider] - (Ro 5 days)
[2022-12-01 15:13] LABS: MANUAL DIFF FLAG NO
[2022-12-01 15:16] LABS: Basophils Percent Auto 0.2 % (0-2); Eosinophils Absolute Auto 0.1 X10*3/uL (0.0-0.4); Eosinophils Percent Auto 0.9 % (0-4); Hematocrit 45.4 % (42.0-52.0); Hemoglobin 15.8 g/dl (14.0-18.0); Imm Gran Abs Auto 0.03 X10*3/uL (0.00-0.03); Imm Gran Pct Auto 0.3 % (0.0-0.4); Lymphocytes Absolute Auto 1.7 X10*3/uL (1.2-4.9); Lymphocytes Percent Auto 16.5 % (20-40); Mean Corpuscular HGB Conc 34.8 g/dl (31.0-36.0); Mean Corpuscular Hemoglobin 29.9 pg (27.0-33.0); Monocytes Absolute Auto 0.6 X10*3/uL (0.1-1.2); Monocytes Percent Auto 5.5 % (2-11); Neutrophils Absolute Auto 7.7 x10*3/uL (2.0-8.3); Neutrophils Percent Auto 76.6 % (45-73); Platelet Count 266 X10*3/uL (160-400); Red Blood Count 5.28 X10*6/uL (4.60-5.80); Red Cell Distribution Width 11.9 % (11.0-16.0)
[2022-12-01 15:32] LABS: Lithium 0.56 mmol/L (0.60-1.20)
[2022-12-01 15:39] LABS: Alanine Aminotransferase 15 U/L (0-40); Alkaline Phosphatase 88 U/L (39-117); Anion Gap 15 (12-20); Aspartate Amino Transferase 18 U/L (5-37); Bilirubin Direct 0.2 mg/dL (0.0-0.5); Bilirubin Total 0.5 mg/dL (0.0-1.0); Blood Urea Nitrogen 14 mg/dL (9-16); Calcium 10.2 mg/dL (8.4-10.2); Carbon Dioxide 23 mmol/L (22-29); Chloride 103 mmol/L (96-108); Creatinine Clr Calc Pharmacy 129.3; Estimated Glomerular Filt Rate > 60; Glucose Random 95 mg/dL (60-115); Potassium 3.9 mmol/L (3.3-5.1); Sodium 137 mmol/L (135-145); Total Protein 8.4 g/dL (6.5-8.0)
[2022-12-01 16:24] VITALS: BP 136/76; PULSE 68; RESP 16; TEMP 36.9; O2SAT 97
[2022-12-01 16:32] VITALS: BP 136/76; PULSE 93; RESP 18; O2SAT 97
--- NOTE | 2022-12-01 16:36 | PC.NURSE ---
Patient alert and oriented. Reports diarrhea x 3 weeks after adjustment of psych meds. states that he had had blurry vision and dizziness on and off and just doesn't feel like himself . States after taking the 4mg of risperidone is when he feels the worse. States upon waking feels groggy and during the day feels like his head is in a fog. States good appetite and fluid intake. Denies SI/Hi. Patient and mother requesting dose adjustment of meds, stating they have an upcoming apt with ELECTRIC DRILL OPERATOR to have meds adjusted and just want to know levels of current meds to make sure there is no toxcicity.
--- NOTE | 2022-12-01 16:43 | PC.NURSE ---
states on clondine for tremors caused by meds
--- NOTE | 2022-12-01 18:10 | PC.NURSE ---
Reviewed new medication doses with patient and mother. Both verbalized understanding
[2022-12-08 17:53] LABS: 9-Hydroxyrisperidone 27.2 ng/mL; Risperidone 3.3 ng/mL; Risperidone + OH Risperidone 30.5 ng/mL
== END 2022-12-01 18:10 | disposition home or self-care (01) ==
PROVIDERS: Physician Assistant Medical; Emergency Provider Emergency Medicine
DX: F31.9 Bipolar disorder, unspecified (principal); H53.8 Other visual disturbances; F17.200 Nicotine dependence, unspecified, uncomplicated; F12.90 Cannabis use, unspecified, uncomplicated; Z79.899 Other long term (current) drug therapy
CPT/HCPCS: 36415; 80048; 80076; 80178; 80342; 85025; 99283; 99284

== ENCOUNTER 2022-12-13 08:56 | Outpatient (AMB) | payer OTHER, SELFPAY ==
--- NOTE | 2022-12-13 09:04 | A.OFFVIS_ITS ---
Intake Vital Signs 12/13/22 09:05 Height 5 ft 9 in Weight 193 lb BMI 28.5 Intake Visit Reasons: N/P right RF tendon severed 09/14/22 Intake Note: Jerri 22 yr old right hand dominant male presents today for a new patient visit for an evaluation for his right hand ring finger injury from 09/14/22. States he was cut with glass by his palmar MCP. States this happen in [place] where he was seen in the ED and was taken to surgery. He says he had hand surgery and healed well but he is not able to fully extend his finger. States he has numbness since DOI. 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 Allergies No Known Allergies Allergy (Verified 12/13/22 09:16) HPI N/P right RF tendon severed 09/14/22 HPI Details Jerri is a 22 year old right hand dominant man who presents for his right ring finger. He says he lacerated his finger with a piece of glass back in September, DOI: 09/14/22. This happened in [place], he was seen in the ED and taken to surgery by a surgeon the same day, but he is unsure of what procedure was performed and he does not have a copy of the OP report. He was placed in a splint after this vernon sarah He says he is unable to fully extend his ring finger and feels limited in the use of his hand. He also has some tingling in the ulnar aspect of the ring finger. He reports normal sensation to all other digits of his right hand. 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 He has a hx of Bipolar disorder vs Schizoaffective disorder, and was hospitalized under psychiatric care on 10/20/22 for some time. He was able to fully engage in conversation today without difficulty and participated in his care. 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 Sexual orientation: Decline to Answer Review of Systems Const All systems reviewed & are unremarkable except as noted in HPI and below Physical Exam Vital Signs: BMI result Body Mass Index 28.5 Const General: cooperative, healthy appearing and no acute distress Orientation/consciousness: patient oriented x3 HEENT Head: Yes normocephalic and Yes atraumatic Eyes EOM: EOMs intact bilaterally Resp Effort & Inspection: normal respiratory effort and able to speak in complete sen tences Cardio Jugular venous distension: no JVD Skin General skin exam: turgor normal Rashes: no rashes Neuro General: patient oriented x3 Extrem Other: Evaluation of Right Upper Extremity: The patient is alert, oriented, and in no acute distress Neuro: Median, Ulnar, Radial nerves motor and sensory intact and sensation is no rmal to the tips of the thumb index, middle and small fingers Normal sensation to the radial digital nerve distribution of the ring finger Tingling to the ulnar digital nerve distribution to the ring finger Vascular: Cap refill brisk ROM: Concerning the ring finger: Active FDS tendon function Active flexion at the PIP joint to 90 degrees No active flexion at the DIP joint Full active motion at the MCP joint Significant PIP joint flexion contracture, initially 50 degrees but got to 40 degrees after exercises We worked on ROM exercises for more than 20 minutes today in clinic Skin: No lacerations or abrasions. Healed laceration to the feliz digital crease of the ring finger Healed oblique surgical scar of the proximal phalanx General: No Ecchymosis. No Erythema or evidence of infection. Psych Appearance: grossly normal Affect: normal affect Attitude: cooperative Office Procedures Fracture Care Details: No fracture, 15+ minutes of manual therapy [id number] Fracture Billing Code: Fracture Billing Code Assessment & Plan Assessment & Plan (1) Laceration of flexor muscle, fascia and tendon of right ring finger at wrist and hand level, initial encounter: Code(s): S66.124A - Laceration of flexor muscle, fascia and tendon of right ring finger at wrist and hand level, initial encounter (2) Stiffness of finger joint: Code(s): M25.649 - Stiffness of unspecified hand, not elsewhere classified Plan Assessment & Plan: 1. Right ring finger likely flexor tendon laceration, S/P suspected flexor tendon repair Suspected injury to ulnar digital nerve DOI: 09/14/22 DOS: 09/14/22, performed in [place] The patient and his mother are working on obtaining a copy of the OP note for me to review. 2. Right ring finger PIP joint flexion contracture Initially ~50 degrees Before leaving clinic of ~40 degrees Good active FDS tendon function Lacking FDP tendon function I educated him about this condition I discussed treatment options, including a PIP joint manipulation and possible release of the volar plate or tenolysis to free up the FDP tendon sheath. Hopefully this is not needed and he can improve with OT and ROM exercises He has some tingling in the ulnar digital nerve distribution of the ring finger, and normal sensation to all other digits. I ordered OT hand therapy to work on tendon gliding exercises and normalizing hand function He will work on ROM exercises, particularly finger extension, 20x daily at minimum We worked on ROM exercises for more than 20 minutes today in clinic He will follow up in 4 weeks for a ROM check. Please note that greater than 30 minutes was spent with this patient going over the history, evaluating the patient and radiographs, formulating possible treatment options, discussing them with the patient, and documenting the visit. Scribed for Helen Renae MD by Carlos Tan, medical office technologist, on 12/13/22 at 9:50 AM, EST. Orders: Orders OT Evaluation and Treatment Today M25.649 - Stiffness of unspecified hand, not elsewhere classified, S66.124A - Laceration of flexor muscle, fascia and tendon of right ring finger at wrist and hand level, initial encounter Coding Level of Care Code New Pt Level 4 (99493) Diagnoses Laceration of flexor muscle, fascia and tendon of right ring finger at wrist and hand level, initial encounter S66.124A Stiffness of finger joint M25.649 CPT Codes Fracture Care - Fracture Billing Code: Fracture Billing Code ([id number])
[2022-12-13 09:05] VITALS: BMI 28.5
== END 2022-12-13 09:55 | disposition home or self-care (01) ==
PROVIDERS: Visit Provider Orthopaedic Surgery
DX: S66.124A Laceration of flexor muscle, fascia and tendon of right ring finger at wrist and hand level, initial encounter (principal); M25.649 Stiffness of unspecified hand, not elsewhere classified
CPT/HCPCS: 97140; 99204

== ENCOUNTER → 2022-12-13 08:56 | Outpatient (BNVA) | payer OTHER, SELFPAY | PROVIDERS: Visit Provider Orthopaedic Surgery | DX: S66.124A Laceration of flexor muscle, fascia and tendon of right ring finger at wrist and hand level, initial encounter (principal); M25.649 Stiffness of unspecified hand, not elsewhere classified | CPT/HCPCS: 97140; 99202 ==

== ENCOUNTER 2023-01-03 09:30 | Outpatient (RCR) | payer OTHER, SELFPAY ==
--- NOTE | 2022-12-15 14:56 | MHC.OT.EP ---
[address] [phone] Occupational Therapy Plan of Care Patient Name: Jerri Desouza Date of Evaluation: 12/15/22 Diagnosis: Right flexor tendon laceration of right ring finger Pain Location: Right ring finger Currnet: 6/10 Best: 4/10 Worst: 8/10 Pain Score: 6 Pain Scale Used: Aggravating Factors: Forceful grasp, digit extension Alleviating Factors: Medicated cream, rest Assessment: Jerri is a 22 y/o male referred to OT s/p right ring finger flexor tendon laceration. DOI was 09/14/22 with surgery performed in [place]. Pt is now ~12 weeks out presenting with PIP joint contracture, digit stiffness, pain with functional tasks, and decreased hand strength. There is good active FDS tendon function, although he is lacking FDP function. 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 A 52.3% limitation is reported per the Quick [facility] assessment. Jerri would benefit from skilled OT services to address noted barriers in hopes of avoiding surgery. Frequency and Duration: The patient will be seen 2x/wk for 6 weeks Short Term Goals: Decrease right ring finger pain >4/10 Improve PIP extension by 10 degrees IND with nighttime orthosis wear to increase digit extension IND with HEP Emergency Medicine Physician Goals: Pain free with BADL's/IADL's Able to make full composite fist Improve PIP extension to 10 degrees IND with progression of HEP Improve R head of ethics and compliance strength >55# Treatment Plan: Therapeutic Exercise Therapeutic Activity Home Exercise Program Splinting Patient Education Desensitization/Sensory Re-ed Ultrasound Fluidotherapy MHP Cold Packs Joint Mobilization Soft Tissue Mobilization Electronically Signed By: Guerda Ledezma MS OTR/L Please Sign and return to therapist. Thank you once again for your referral.
--- NOTE | 2023-03-08 09:20 | MHC.OT.DC ---
[address] [phone] F: [phone] Occupational Therapy Discharge Note Patient Name: Jerri Desouza Provider: Elsie Siddiqui Diagnosis: Right flexor tendon laceration of right ring finger Date of Evaluation: 12/15/22 Date of Discharge: 03/08/23 Treatments to Date: 5 Discharge Status: Improved Function Independent with HEP Patient Elected to Stop Discharge Summary: Pt last seen in clinic on 01/03 with mom present, very supportive. Pt was progressing with PIP flex/ext and pain management. He has since seen Dr. Renae twice with noted improvement, although did not follow up with future outpatient OT appointments. Per documentation and discussion w/ Sania mother, pt.is moving soon and is requesting printed home exercise program. Pt. was provided with written note, pictures of exercises and advised to continue working on education program specialist strengthening. He was advised to call with any questions/concerns. Electronically Signed By: Guerda Ledezma MS OTR/L Reviewed/agree with student documentation: N/A Therapist: Please Sign and return to therapist, thank you for your referral.
== END 2023-03-08 09:21 | disposition home or self-care (01) ==
LOC: HO.OT 09:30
PROVIDERS: Visit Provider Physician Assistant
DX: S66.124D Laceration of flexor muscle, fascia and tendon of right ring finger at wrist and hand level, subsequent encounter (principal); M25.641 Stiffness of right hand, not elsewhere classified
CPT/HCPCS: 29131; 97035; 97110; 97165; 97760

== ENCOUNTER 2023-01-17 10:30 | Outpatient (AMB) | payer OTHER, SELFPAY ==
[2023-01-17 10:37] VITALS: BMI 28.5
--- NOTE | 2023-01-17 10:37 | A.OFFVIS_ITS ---
Intake Vital Signs 01/17/23 10:37 Height 5 ft 9 in Weight 193 lb BMI 28.5 Intake Visit Reasons: OV - Rt RF Tendon ROM check Intake Note: Jerri 22 yr old male presents for his Right ring finger PIP joint flexion contracture ROM check from DOI 09/14/22 S/P getting cut with glass. States he has been working on his ROM and has improved. Still has a little tingling by laceration site. Allergies No Known Allergies Allergy (Verified 12/13/22 09:16) HPI OV - Rt RF Tendon ROM check HPI Details Jerri is a 22 year old right hand dominant man who presents for a ROM check of his right ring finger, S/P laceration, DOI: 09/14/22. He is seen today with his mother. He has a PIP joint flexion contracture and a flexor tendon laceration, S/P possible tendon repair at an outside clinic in [place]. Unfortunately he has a hx of Bipolar disorder vs Schizoaffective disorder, and was hospitalized under psychiatric care on 10/20/22 for some time which may have impacted his post- op physical rehab. After reviewing his medical records it appears that his laceration was just sutured closed in the ED in [place] and he did not undergo surgery. He has been working on ROM exercises at home and with OT hand therapy. He feels he has improved his ROM and is happy about this. He continues to have some tingling about the laceration site, and still has some numbness in the ulnar digital nerve distribution of the ring finger.. He says he has stopped OT last week, reportedly the therapists were concerned that he may need surgery so he should save his remaining appointments until after his appointment today. 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 He says he has some difficulty with performing a rotoformer backtender springs as he cannot fully extend his ring finger. He was able to fully engage in conversation today without difficulty and participated in his care.? ? 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 Sexual orientation: Decline to Answer Review of Systems Const All systems reviewed & are unremarkable except as noted in HPI and below Physical Exam Vital Signs: BMI result Body Mass Index 28.5 Const General: no acute distress and alert Orientation/consciousness: patient oriented x3 HEENT Head: Yes normocephalic and Yes atraumatic Eyes EOM: EOMs intact bilaterally Resp Effort & Inspection: normal respiratory effort and able to speak in complete sentences Cardio Jugular venous distension: no JVD Skin General skin exam: turgor normal Rashes: no rashes Neuro General: patient oriented x3 Extrem Other: Evaluation of Right Upper Extremity: The patient is alert, oriented, and in no acute distress Neuro: Median, Ulnar, Radial nerves motor and sensory intact and sensation is normal to the tips of the thumb index, middle and small fingers Normal sensation to the radial digital nerve distribution of the ring finger Numbnes & tingling to the ulnar digital nerve distribution to the ring finger Vascular: Cap refill brisk ROM: He can make a good fist but he does not have active ring finger DIP flexion Good active flexion of the PIP joint of the ring finger to 90 degrees today. Good FDP & FDS tendon function to all other digits Concerning the ring finger: Active FDS tendon function Active flexion at the PIP joint to 90 degrees No active flexion at the DIP joint Full active motion at the MCP joint With active extension, he has a PIP joint flexion contracture, improved from 50 degrees to ~25 degrees with ROM and OT hand therapy Skin: Healed laceration over the volar base of the ring finger Healed laceration to the feliz digital crease of the ring finger Healed oblique scar over the proximal phalanx Psych Appearance: grossly normal Affect: normal affect Attitude: cooperative Assessment & Plan Assessment & Plan (1) Laceration of flexor muscle, fascia and tendon of right ring finger at wrist and hand level, initial encounter: Code(s): S66.124A - Laceration of flexor muscle, fascia and tendon of right ring finger at wrist and hand level, initial encounter (2) Stiffness of finger joint: Code(s): M25.649 - Stiffness of unspecified hand, not elsewhere classified Plan Assessment & Plan: 1. Right ring finger flexor digitorum profundus tendon laceration Suspected injury to ulnar digital nerve DOI: 09/14/22, in [place] After reviewing his incoming medical records it appears that his laceration was just sutured closed in the ED in [place] and he did not appear to undergo surgery. It appears they identified the FDP tendon laceration and discussed surgery, but the patient declined surgery at the time. He was being admitted for acute inpatient psychiatric treatment We are going to speak with his mother and work on clarifying the possible history of surgery versus no surgery 2. Right ring finger PIP joint flexion contracture Improved from 50 degrees last visit to ~25 degrees Good active FDS tendon function Lacking FDP tendon function I educated him about this condition I discussed treatment options, including a possible two-stage flexor tendon reconstruction procedure as well as a release of the volar plate of the PIP joint I do not recommend surgery at this time as he has shown improvement of his flexion contracture from 50 degrees to 25 degrees with OT hand therapy, and the risks of surgery currently outweigh the potential benefits. As he has a working FDS tendon I do not think I would recommend and FDP tendon reconstruction He has stopped OT hand therapy under the advisement of his therapist as they thought he was no longer improving and may require surgery. I will speak with them concerning his treatment plan. He continues to have some tingling in the ulnar digital nerve distribution of the ring finger, and normal sensation to all other digits. I discussed activity modification, he is to continue with at-home ROM exercises and with OT for tendon gliding exercises He should try to avoid performing activities such as back-hand springs at this time I ordered a new course of OT hand therapy to work on tendon gliding exercises and ROM. He will follow up in 6-8 weeks for a ROM check. I reached out and speak with OT hand therapy concerning his treatment. Please note that greater than 40 minutes was spent with this patient going over the history, evaluating the patient and radiographs, formulating possible treatment options, discussing them with the patient, and documenting the visit. Scribed for Helen Renae MD by Carlos Tan, ophthalmic medical assistant, on 01/17/23 at 11:30 AM, EST. Orders: Orders OT Evaluation and Treatment Today M25.649 - Stiffness of unspecified hand, not elsewhere classified, S66.124A - Laceration of flexor muscle, fascia and tendon of right ring finger at wrist and hand level, initial encounter Coding Level of Care Code Est Pt Level 4 (99338) Diagnoses Laceration of flexor muscle, fascia and tendon of right ring finger at wrist and hand level, initial encounter S66.124A Stiffness of finger joint M25.649
== END 2023-01-17 11:57 | disposition home or self-care (01) ==
PROVIDERS: Visit Provider Orthopaedic Surgery
DX: S66.124A Laceration of flexor muscle, fascia and tendon of right ring finger at wrist and hand level, initial encounter (principal); M25.649 Stiffness of unspecified hand, not elsewhere classified
CPT/HCPCS: 99214

== ENCOUNTER → 2023-01-17 10:30 | Outpatient (BNVA) | payer OTHER, SELFPAY | PROVIDERS: Visit Provider Orthopaedic Surgery | DX: S66.124A Laceration of flexor muscle, fascia and tendon of right ring finger at wrist and hand level, initial encounter (principal); M24.541 Contracture, right hand | CPT/HCPCS: 99212 ==

== ENCOUNTER 2023-01-27 10:21 | Outpatient (AMB) | payer OTHER, SELFPAY ==
[2023-01-27 10:23] VITALS: BP 148/80; PULSE 69; O2SAT 97
--- NOTE | 2023-01-27 10:23 | A.OFFPC_ITS ---
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 Allergies No Known Allergies Allergy (Verified 01/27/23 10:39) Medication List - Last Reconciled 01/27/23 by AMADEO Sidhu clonidine HCl 0.1 mg See Protocol PO BEDTIME lithium carbonate 600 mg PO BID lorazepam 1 mg PO BEDTIME nicotine (polacrilex) 4 mg buccal Q2H PRN risperidone 2 mg PO BEDTIME risperidone 1 mg PO DAILY trazodone 150 mg PO BEDTIME Tobacco use date assessed: 01/27/23 Dental Screening Dental Screen Date: 01/27/23 Did you have a dental visit in the last 12 months?: Yes Did you have a dental problem in the last 6 months where you did not have access to dental care?: No Was dental information given to patient?: Patient has dentist 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 Previous PCP Dr. Vicente at [facility]. Medical history significant for schizoaffective disorder bipolar type-followed by Psychiatry Dr. Starr at [facility] and mental health medications are followed by Psychiatry, follow ups with provider every 2 weeks; stiffness of finger joint right hand 4th finger-followed by Dr. Renae. Patient denies shortness of breath or chest pain. Up-to-date with dental exam. Patient does not see eye doctor due to no problems with his eyes. Encouraged patient to provide office with immunization records, he will talk to his mom about this. Patient lives with his father and currently unemployed. [facility] Medical History (Updated 01/27/23 @ 11:03 by AMADEO Sidhu) No pertinent past medical history Surgical History (Updated 01/27/23 @ 10:44 by AMADEO Sidhu) H/O hand surgery Family History Mother No problems noted. Father No problems noted. 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 1. Little interest or pleasure in doing things: not at all 2. Feeling down, depressed, or hopeless: not at all 3. Trouble falling or staying asleep, or sleeping too much: not at all 4. Feeling tired or having little energy: not at all 5. Poor appetite or overeating: not at all 6. Feeling bad about yourself - or that you are a failure or have let yourself or your family down: not at all 7. Trouble concentrating on things, such as reading the newspaper or watching television: not at all 8. Moving or speaking so slowly that other people could have noticed. Or the opposite - being so fidgety or restless that you have been moving around a lot more than usual: not at all 9. Thoughts that you would be better off or of hurting yourself in some way: not at all Total score: 0 Depression Screening Interpretation: Negative 59562 - PHQ-9 Billing: Yes Source: Developed by Drs. Delano Hopkins, Vy Crocker, Devyn Maradiaga and colleagues, with an educational maury from [employer]. Thrive Questionnaire Date Thrive assessed: 01/27/23 I am a: Patient What is your living situation today?: I have a steady place to live Within the past 12 months, did the food you bought not last and you didn't have the money to get more?: Never true Within the past 12 months, did you worry whether your food would run out before you got money to buy more?: Never true Do you have trouble paying for medicines?: No Do you have trouble getting transportation to medical appointments?: No Do you have trouble paying your heating and electricity bill?: No Do you have trouble taking care of your child, family member or friend?: No Do you have trouble with day-to-day activities such as bathing, preparing meals, shopping, managing finances, etc.?: No Are you currently unemployed and looking for a job?: No Are you interested in more education?: No Currently or been in a relationship where the following occur: no concerns reported AUDIT C Alcohol Use Questionnaire (AUDIT-C) 1. How often do you have a drink containing alcohol?: Never 2. How many drinks containing alcohol do you have on a typical day when you are drinking?: 1 or 2 (0) 3. How often do you have six or more drinks on one occasion?: Never Total Score: 0 Score Reviewed/Action Taken: No ALBERTA-7 AMB Questionnaire ALBERTA-7 Date ALBERTA - 7 assessed: 01/27/23 Feeling nervous, anxious, or on edge: 0 = Not at all Not being able to stop or control worryin = Not at all Worrying too much about different things: 0 = Not at all Trouble relaxin = Not at all Being so restless that it is hard to sit still: 0 = Not at all Becoming easily annoyed or irritable: 0 = Not at all Feeling afraid as if something awful might happen: 0 = Not at all Total ALBERTA-7 score (0-4 normal; 5-9 mild; 10-14 moderate; 15-21 severe): 0 Source: Developed by Drs. Delano Hopkins, Vy Crocker, Devyn Maradiaga and colleagues, with an educational maury from [employer]. ALBERTA-7 Assessment Billing ALBERTA-7 Assessment Tool: ALBERTA-7 Assessment 44669 Review of Systems Const Denies body aches, Denies chills, Denies fever(s) and Denies headache(s) Eyes Denies change in vision ENT Denies dizziness, Denies otalgia, Denies headache(s), Denies nasal discharge, Denies sinus pain and Denies sore throat Card Denies chest pain, Denies edema, Denies lightheadedness and Denies dyspnea Resp Denies cough, Denies dyspnea and Denies wheezing GI Denies abdominal pain Denies dysuria Musc Denies myalgias Skin/Breast Denies rash Neuro Denies dizziness and Denies headache(s) Aller/Immun Denies wheezing Physical exam (Primary Care) Vital Signs: Last Vital Signs Pulse 69 01/27/23 10:23 BP 148/80 H 01/27/23 10:23 Pulse Ox 97 01/27/23 10:23 Oxygen Delivery Method Room Air 01/27/23 10:23 BMI result Body Mass Index 30.0 Tobacco/Smoking Status: Tobacco use Status Tobacco use date assessed 01/27/23 01/27/23 10:32 Patient Tobacco Use Status Former Tobacco user 01/27/23 10:32 e-Cigarette/Vaping Use Currently Using 01/27/23 10:32 PHQ-9: PHQ-9 Score PHQ-9: Total score 0 01/27/23 10:32 Depression Screening Interpretation: Negative Thrive Assessment: Date of Thrive Assessment Date Thrive assessed 01/27/23 01/27/23 10:32 Currently or been in a relationship where the following occur: no concerns reported Const General: cooperative and no acute distress Orientation/consciousness: patient oriented x3 HENMT Head: Yes normocephalic and Yes atraumatic Ears: TM's normal bilaterally Face and sinus: Yes sinuses nontender Mouth: oropharynx normal and moist mucous membranes Throat: Yes posterior oropharynx normal Eyes General: appearance normal, both eyes and all related structures Pupils: Equal, round and reactive pupils present EOM: EOMs intact bilaterally Neck Neck: Yes normal visual inspection, Yes full ROM and Yes no lymphadenopathy Thyroid: Thyroid normal Resp Effort & Inspection: normal respiratory effort and able to speak in complete sentences Auscultation: clear to auscultation bilaterally, no crackles, no rales, no rhonchi and no wheezes Cardio Rate: regular rate Rhythm: regular rhythm Heart sounds: S1 normal heart sound present, S2 normal heart sound present and no murmurs GI Palpation (GI): Soft to palpation, not firm, nontender, no guarding, not rigid and no hepatosplenomegaly Auscultation: normal bowel sounds General: No CVA tenderness Back/Spine/Pelvis Back: No CVA tenderness Skin General skin exam: no rashes or lesions noted Neuro General: patient oriented x3 Cranial nerves: Yes Equal, round and reactive pupils present Gait exam (Neuro): Normal gait present Extrem General: Yes full ROM and No edema Assessment and Plan Assessment & Plan (1) Encounter to establish care: Code(s): Z76.89 - Persons encountering health services in other specified circumstances Plan: Patient presents to establish care Up-to-date with blood work (2) Schizoaffective disorder, bipolar type: Code(s): F25.0 - Schizoaffective disorder, bipolar type Plan: Continue to follow-up with Psychiatry Dr. Starr at [facility] who manages mental health medications (3) Engages in vaping: Code(s): Z72.89 - Other problems related to lifestyle Plan: Encouraged vaping cessation Patient uses nicotine gum p.r.n. Plan Patient would like to be seen by MIKAYLA Garcia in the future Follow-up in 1 year for physical exam or sooner as needed Coding Level of Care Code New Pt Level 3 (84096) Diagnoses Encounter to establish care Z76.89 Schizoaffective disorder, bipolar type F25.0 Engages in vaping Z72.89 Additional Codes ALBERTA-7 Assessment Billing - ALBERTA-7 Assessment Tool: ALBERTA-7 Assessment 09828 ([id number])
[2023-01-27 10:53] VITALS: BP 124/78
== END 2023-01-27 10:55 | disposition home or self-care (01) ==
PROVIDERS: PCP Nurse Practitioner Family; Visit Provider Nurse Practitioner Family
DX: F25.0 Schizoaffective disorder, bipolar type (principal); Z76.89 Persons encountering health services in other specified circumstances; Z72.89 Other problems related to lifestyle
CPT/HCPCS: 99203

== ENCOUNTER 2023-03-07 10:48 | Outpatient (AMB) | payer OTHER, SELFPAY ==
--- NOTE | 2023-03-07 11:00 | A.OFFVIS_ITS ---
Intake Vital Signs 03/07/23 11:00 Height 5 ft 9 in Weight 203 lb BMI 30.0 Intake Visit Reasons: OV - Rt RF Tendon ROM Intake Note: Jerri 22 yr old male presents for his Right ring finger PIP joint flexion contracture ROM check from DOI 09/14/22 S/P getting cut with glass. States he has been working on his ROM at home and has improved however he is not able to bend at his DIP joint of his ring finger. Allergies No Known Allergies Allergy (Verified 03/07/23 11:05) HPI OV - Rt RF Tendon ROM HPI Details Jerri is a 22 year old right hand dominant young man with bipolar and schizoaffective disorder. He is seen today with his mother for a ROM check of his right ring finger He is S/P right ring finger FDP tendon laceration, DOI: 09/14/22, that went untreated as he was in the middle of a psychiatric crisis. He has been working on exercises at home to improve his right ring finger PIP flexion contracture. He has chief complaint today is of poor assembler watch train strength in the right hand and difficulty manipulating objects like power tools. Please see my note from 01/17/23 for more information He says he has not seen OT hand therapy since his last appointment, but did his exercises at home. 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 He was able to fully engage in conversation today without difficulty and participated in his care. [facility] Medical History (Updated 03/07/23 @ 11:41 by Helen Renae MD) No pertinent past medical history Surgical History (Updated 01/27/23 @ 10:44 by AMADEO Sidhu) H/O hand surgery Family History Mother No problems noted. Father No problems noted. 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 Sexual orientation: Decline to Answer Cognitive needs: No Hearing needs: No Vision needs: No Review of Systems Const All systems reviewed & are unremarkable except as noted in HPI and below Physical Exam Vital Signs: BMI result Body Mass Index 30.0 Const General: no acute distress and alert Orientation/consciousness: patient oriented x3 HEENT Head: Yes normocephalic and Yes atraumatic Eyes EOM: EOMs intact bilaterally Resp Effort & Inspection: normal respiratory effort and able to speak in complete sen tences Cardio Jugular venous distension: no JVD Skin General skin exam: turgor normal Rashes: no rashes Neuro General: patient oriented x3 Extrem Other: Evaluation of Right Upper Extremity: The patient is alert, oriented, and in no acute distress Neuro: Median, Ulnar, Radial nerves motor and sensory intact and sensation is no rmal except for decreased sensation to the ulnar aspect of his ring finger. Normal sensation to the radial digital nerve distribution of the ring finger Numbness & tingling to the ulnar digital nerve distribution to the ring finger that is unchanged and part of his injury Vascular: Cap refill brisk ROM: He can make a good fist but he does not have active ring finger DIP flexion Good FDP & FDS tendon function to all other digits Concerning the ring finger: No active flexion at the DIP joint He has improved the extension at the PIP joint considerably and can now place his hand flat on the table. His PIP flexion contracture has improved from 50 degrees to now likely less than 5 degrees. Skin: Healed laceration over the volar base of the ring finger Healed laceration to the palmar digital crease of the ring finger Healed oblique scar over the proximal phalanx Psych Appearance: grossly normal Affect: normal affect Attitude: cooperative Assessment & Plan Assessment & Plan (1) Laceration of flexor muscle, fascia and tendon of right ring finger at wrist and hand level, initial encounter: Code(s): S66.124A - Laceration of flexor muscle, fascia and tendon of right ring finger at wrist and hand level, initial encounter (2) Stiffness of finger joint: Code(s): M25.649 - Stiffness of unspecified hand, not elsewhere classified Plan Assessment & Plan: 1. Right ring finger FDP tendon laceration Suspected injury to ulnar digital nerve DOI: 09/14/22, in [place] This evidently went untreated as he was being admitted for acute inpatient psychiatric treatment No active FDP tendon function 2. Right ring finger PIP joint flexion contracture Originally he had a 50 degree flexion contracture, this has improved to likely less than a 5 degree PIP flexion contracture Good active FDS tendon function Lacking FDP tendon function I educated him about this condition I am pleased with the improvement in his PIP joint range of motion. His chief complaint at this time is of poor assembler watch train strength in the right hand and manipulating objects like drills and other power tools. Again I would not recommend a 2 stage FDP tendon reconstruction. It is not clear that he needs surgery for a D IP joint arthrodesis. At this point I am referring him back to OT hand therapy to work on improving assembler watch train strength and improving overall hand function. He is going to be gone for about a month. We are going to trying get him in this week so they can give him a home exercise program to work on improving assembler watch train strength. He and his mother are happy with the current plan. He will follow-up p.r.n. Scribed for Helen Renae MD by Carlos Tan, medical office assistant, on 03/07/23 at 11:45 AM, EST. Orders: Orders OT Evaluation and Treatment Today R29.898 - Other symptoms and signs involving the musculoskeletal system, S66.124A - Laceration of flexor muscle, fascia and tendon of right ring finger at wrist and hand level, initial encounter Coding Level of Care Code Est Pt Level 3 (37847) Diagnoses Laceration of flexor muscle, fascia and tendon of right ring finger at wrist and hand level, initial encounter S66.124A Stiffness of finger joint M25.649
== END 2023-03-07 11:43 | disposition home or self-care (01) ==
PROVIDERS: Visit Provider Orthopaedic Surgery
DX: S66.124A Laceration of flexor muscle, fascia and tendon of right ring finger at wrist and hand level, initial encounter (principal); M24.542 Contracture, left hand
CPT/HCPCS: 99213

== ENCOUNTER → 2023-03-07 10:48 | Outpatient (BNVA) | payer OTHER, SELFPAY | PROVIDERS: Visit Provider Orthopaedic Surgery | DX: M25.641 Stiffness of right hand, not elsewhere classified (principal) | CPT/HCPCS: 99212 ==